=== PATIENT | male | born 1950 | race Caucasian/White ===

== ENCOUNTER → 2019-06-24 09:52 | Outpatient (BNVA) | payer MEDICARE, MEDICAID, SELFPAY | PROVIDERS: Family Provider Nurse Practitioner; Visit Provider Psychiatry & Neurology Psychiatry | DX: F33.1 Major depressive disorder, recurrent, moderate (principal); F40.00 Agoraphobia, unspecified | CPT/HCPCS: 99213 ==

== ENCOUNTER 2019-12-14 12:37 | Emergency (ER) | payer MEDICARE, MEDICAID, SELFPAY ==
[2019-12-14 12:49] VITALS: BP 151/90; PULSE 99; RESP 20; TEMP 35.9; O2SAT 92; BMI 36.5
[2019-12-14 12:53] VITALS: RESP 18
--- NOTE | 2019-12-14 13:22 | W.ED.DENTAL ---
HPI - Dental/Oral General: Chief complaint: Dental/Oral Stated complaint: dental pain Time Seen by Provider: 12/14/19 12:48 History of Present Illness: HPI Narrative: This patient is a 69-year-old male presenting today with what he thinks is a dental abscess. He is having pain in the left upper rear molar. He said he has had issues like this before and feels like he needs some antibiotic while waiting for his dentist appointment that is on Monday. He has not felt like he had a fever. He denies any other complaints. He does have a history of high blood pressure for which he takes losartan. He has been very careful in terms of any exposure to COVID. Associated symptoms: Denies fever(s) or odynophagia Review of Systems General: Reports: 10 or more systems reviewed and unremarkable except in HPI and below Const: Denies: fever(s), chills, fatigue or malaise Eyes: Denies: change in vision ENMT: Reports: dental pain; Denies: odynophagia Card: Denies: chest pain or swelling of feet/ankles Resp: Denies: dyspnea, productive cough or non-productive cough GI: Denies: abdominal pain, nausea or vomiting : Denies: flank pain Musc: Denies: neck pain or back pain Skin/Breast: Denies: rash Neuro: Denies: headache(s), numbness in extremities or weakness in extremities Travis/Lymph: Denies: easy bruising or easy bleeding PFS ED PFSH: Medical History Anxiety Diverticulitis GERD (gastroesophageal reflux disease) Hypertension IBS (irritable bowel syndrome) Surgical History History of hemorrhoidectomy Family History Sister Cancer Mother Lung disease Social History Smoking and tobacco status: former smoker Quit status (tobacco): has quit using tobacco Year quit tobacco: 2004 Second hand smoke exposure: No Smoking risk assessment/counseling performed?: Yes Tobacco counseling given: counseling >3 minutes Alcohol intake: never History of recent travel: No Physical Exam Const: COMMON NORMALS: no acute distress, patient oriented x3, no limitations and alert GENERAL APPEARANCE: cooperative and comfortable HENMT: HEAD & SCALP: normal to inspection FACE & SINUS: normal facial exam TEETH & GINGIVA IMAGES: 1. Deep [place], mild erythema around the gum area Eye: GENERAL EYE: appearance normal, both eyes and all related structures Neck/C-Spine: COMMON NORMALS: supple, no meningeal signs and no JVD Chest: COMMONS NORMALS: normal inspection of the chest Resp: COMMON NORMALS: normal respiratory effort, No use of accessory muscles and clear to auscultation bilaterally AUSCULTATION: clear to auscultation bilaterally Cardio: COMMON NORMALS: no JVD, regular rate, regular rhythm and No murmurs present (Cardio) RATE: regular rate RHYTHM: regular rhythm GI: COMMON NORMALS: Normal to inspection, nondistended, normoactive bowel sounds present, Soft to palpation and non-tender INSPECTION: Yes normal to inspection AUSCULTATION: Yes normoactive bowel sounds PALPATION: Yes Soft to palpation Back/Pelvis: COMMON NORMALS: thoracic and lumbar spine normal to inspection Extremity: COMMON NORMALS: normal to inspection Neuro: COMMON NORMALS: patient oriented x3, moves all extremities, no focal motor deficits and no sensory deficits noted SENSORIUM/ORIENTATION: Yes alert MENINGEAL SIGNS: Yes no meningeal signs Psych: COMMON NORMALS: mental status grossly normal, cooperative and normal affect Skin: COMMON NORMALS: no rashes or lesions noted and turgor normal GENERAL SKIN EXAM: no rashes or lesions noted and turgor normal Course Vital Signs: Vital signs: Vital Signs Temperature 96.6 F L 12/14/19 12:49 Pulse Rate 99 12/14/19 12:49 Respiratory Rate 18 12/14/19 12:53 Blood Pressure 151/90 12/14/19 12:49 Pulse Oximetry 92 12/14/19 12:49 MDM - Dental/Oral MDM Narrative: Medical decision making narrative: Mild erythema and swelling around the rearmost remaining molar in the left upper. No murmurs on exam. No rashes. Will start on penicillin per his request and per appropriate medical treatment. He has a dentist appointment on Monday. He also said his doctor was laid off due to this COVID pandemic and he is asking if I can refill his losartan and omeprazole. I did do that for him. Discharge Plan Discharge Patient Disposition: Home Condition: Stable Prescriptions: New losartan 50 mg tablet 50 mg PO DAILY Qty: 30 RF: 1 omeprazole 20 mg capsule,delayed release(DR/EC) 20 mg PO DAILY Qty: 30 RF: 1 penicillin V potassium 500 mg tablet 500 mg PO Q6H 10 Days Qty: 40 RF: 0 No Action ibuprofen 200 mg capsule 600 mg PO Q6H PRN (Reason: fever or pain) RF: 0 cholecalciferol (vitamin D3) 4,000 unit capsule 8,000 unit PO DAILY RF: 0 aspirin 81 mg tablet,delayed release (DR/EC) 81 mg PO DAILY RF: 0 diazepam 5 mg tablet 5 mg PO DAILY PRNRF: 0 polyethylene glycol 3350 [Miralax] 17 gram/dose powder 17 gm PO .EVERY OTHER DAY RF: 0 docusate sodium 50 mg capsule 50 mg PO DAILY RF: 0 Discharge Orders: Discharge Order (Routine); Ordered 12/14/19 Ordered By: Angela Ramos Discharge Diet: Usual diet Discharge Activity: Resume usual activity Patient Instructions: Dental Abscess (ED) Activity Restrictions/Additional Instructions: Return to the ED if fever, increased swelling, trouble breathing or swallowing - or any other new or concerning symptoms. Coding Level of Care Code ED Patent Paralegal for Mima Bazan
[2019-12-14] MEDS: penicillin v potassium 250 mg Tablet 500 MG PO (13:27)
[2019-12-14 13:30] VITALS: BP 120/75; PULSE 95; RESP 18; O2SAT 95
== END 2019-12-14 13:31 | disposition home or self-care (01) ==
PROVIDERS: Emergency Provider Emergency Medicine
DX: K08.89 Other specified disorders of teeth and supporting structures (principal); Z79.82 Long term (current) use of aspirin; I10 Essential (primary) hypertension; Z87.891 Personal history of nicotine dependence
CPT/HCPCS: 12345; 99281; 99282

== ENCOUNTER 2020-05-20 07:04 | Outpatient (CLI) | payer MEDICARE, MEDICAID, SELFPAY ==
--- NOTE | 2020-05-20 07:09 | USCV_ITS ---
El Puente Age: 70 Gender: M : 1950 Exam Date: 05/20/2020 07:27 Ordering Phys: Kris Howe MD Technologist: [employer] Exam Location: [facility] – [place] Indication: DYSPNEA ON EXERTION BP: 140 / 80 HR: 75 Rhythm: Sinus Technical Quality: Poor MEASUREMENTS (Male / Female) Normal Values 2D ECHO LV Diastolic Diameter PLAX 4.5 cm 4.2 - 5.9 / 3.9 - 5.3 cm LV Systolic Diameter PLAX 2.9 cm IVS Diastolic Thickness 0.9 cm 0.6 - 1.0 / 0.6 - 0.9 cm IVS Systolic Thickness 1.3 cm LVPW Diastolic Thickness 1.0 cm 0.6 - 1.0 / 0.6 - 0.9 cm LVPW Systolic Thickness 1.5 cm LVOT Diameter 2.0 cm LV Ejection Fraction 2D Teich 63.6 % LV Ejection Fraction MOD 2C 70.7 % LV Ejection Fraction 2C AL 70.5 % LA Diameter 4.8 cm LA Width 5.4 cm LA Height 5.1 cm RA Width 3.9 cm RA Height 4.4 cm M-MODE LV Diastolic Diameter MM 5.8 cm 4.2 - 5.9 / 3.9 - 5.3 cm LV Systolic Diameter MM 4.1 cm LV Ejection Fraction MM Teich 55.1 % IVS Diastolic Thickness MM 1.1 cm 0.6 - 1.0 / 0.6 - 0.9 cm IVS Systolic Thickness MM 1.7 cm LVPW Diastolic Thickness MM 1.3 cm 0.6 - 1.0 / 0.6 - 0.9 cm LVPW Systolic Thickness MM 2.0 cm RV Diastolic Diameter MM 2.3 cm Aortic Annulus Diameter 4.2 cm LA Ao Ratio MM 1.3 MV E Point Septal Separation 1.1 cm DOPPLER AV Peak Velocity 121.0 cm/s LVOT Peak Velocity 96.0 cm/s AV Area Cont Eq vti 3.0 cm squared AV Area Cont Eq pk 2.6 cm squared MV Area PHT 3.9 cm squared Mitral E to A Ratio 0.6 MV E' Velocity 24.5 cm/s Mitral E to MV E' Ratio 4.9 Mitral E to LV E' Lateral Ratio 7.0 Mitral E to LV E' Septal Ratio 3.8 TR Peak Velocity 191.2 cm/s TR Peak Gradient 14.6 mmHg TR Mean Velocity 152.7 cm/s TR Mean Gradient 10.7 mmHg TR Velocity Time Integral 74.5 cm TV Peak E Velocity 89.0 cm/s Right Atrial Pressure 3.0 mmHg Pulmonary Artery Systolic Pressu 17.6 mmHg PV Peak Velocity 72.0 cm/s FINDINGS Left Ventricle Normal left ventricular cavity size. Normal left ventricular systolic function. Left ventricular ejection fraction is estimated at 65%. Although no diagnostic regional wall motion abnormality could be identified, this possibility cannot be completely excluded based on this study. Grade I diastolic dysfunction (abnormal relaxation filling pattern), normal to mildly elevated filling pressures. Right Ventricle Normal right ventricular size and systolic function. Right ventricular systolic pressure 17.6 mmHg. Right Atrium Normal right atrial size. Left Atrium Upper normal left atrial size. Mitral Valve Thickened mitral valve. No mitral valve stenosis. Trace mitral valve regurgitation. Aortic Valve No aortic valve stenosis. No aortic valve regurgitation. Tricuspid Valve Structurally normal tricuspid valve. Trace tricuspid valve regurgitation. Pulmonic Valve Pulmonic valve not well visualized. Pericardium No pericardial effusion. Aorta Normal size aortic root and proximal ascending aorta. CONCLUSIONS 1. Normal left ventricular cavity size and systolic function. Left ventricular ejection fraction is estimated at 65%. Although no diagnostic regional wall motion abnormality could be identified, this possibility cannot be completely excluded based on this study. Grade I diastolic dysfunction (abnormal relaxation filling pattern), normal to mildly elevated filling pressures. 2. Normal right ventricular size and systolic function. 3. Normal pulmonary artery pressure. 4. No significant valvular abnormalty. 5. No prior similar studies to compare. Sun Goodman MD (Electronically Signed) Final Date: 24 May 2020 21:33 S
== END 2020-05-20 07:05 | disposition home or self-care (01) ==
PROVIDERS: PCP Family Medicine; Visit Provider Family Medicine
DX: R06.00 Dyspnea, unspecified (principal)
CPT/HCPCS: 93306

== ENCOUNTER → 2020-12-09 08:11 | Outpatient (BNVA) | payer MEDICARE, MEDICAID, SELFPAY | PROVIDERS: PCP Family Medicine; Referring Provider Family Medicine; Visit Provider Urology | DX: R97.20 Elevated prostate specific antigen [PSA] (principal); N40.0 Benign prostatic hyperplasia without lower urinary tract symptoms | CPT/HCPCS: 84153 ==

== ENCOUNTER 2021-02-08 09:21 | Outpatient (CLI) | payer MEDICARE, MEDICAID, SELFPAY | END 2021-02-08 09:22 | disposition home or self-care (01) | LOC: LAB 09:31 | PROVIDERS: PCP Family Medicine; Visit Provider Urology | DX: R97.20 Elevated prostate specific antigen [PSA] (principal) | CPT/HCPCS: 84153 ==

== ENCOUNTER → 2021-02-10 12:58 | Outpatient (BNVA) | payer MEDICARE, MEDICAID, SELFPAY | PROVIDERS: PCP Family Medicine; Visit Provider Urology | DX: N40.0 Benign prostatic hyperplasia without lower urinary tract symptoms (principal); R97.20 Elevated prostate specific antigen [PSA]; F41.9 Anxiety disorder, unspecified; N39.9 Disorder of urinary system, unspecified | CPT/HCPCS: 81003 ==

== ENCOUNTER → 2021-02-26 12:14 | Outpatient (BNVA) | payer MEDICARE, MEDICAID, SELFPAY | PROVIDERS: PCP Family Medicine; Visit Provider Urology | DX: R97.20 Elevated prostate specific antigen [PSA] (principal) | CPT/HCPCS: 88305 ==

== ENCOUNTER 2021-03-30 08:02 | Outpatient (CLI) | payer MEDICARE, MEDICAID, SELFPAY ==
--- NOTE | 2021-03-30 08:09 | NM_ITS ---
WS: [id number] NUCLEAR MEDICINE BONE SCAN Radiopharmaceutical: 27.3 Tc-99m MDP mCi IV Injection site: Antecubital Postinjection imaging delay: 1 hr CLINICAL INFORMATION: ELEVATED PSA COMPARISON: None. FINDINGS: Bone lesions: Metastatic bony uptake involving the right hemisacrum and left acetabulum extending int o the left inferior pubic ramus. Additional faint focus of uptake involving the left posterior ilium. Tiny punctate focus of uptake involving the right scapula along the inferior margin. Intense bony up take involving the lower thoracic vertebral body at approximately T10. This can be further evaluated with MRI to assess for pathologic compression fracture. A few additional nonspecific faint foci of up take involving the left posterior ribs. Soft tissue contours: Normal. Kidneys: Normal. Other findings: Degenerative uptake involving both AC joints, sternoclavicular joints, and both knees . NM/NM bone scan whole body* [id number] IMPRESSION: 1. Metastatic disease involving the right dorsal hemisacrum and left acetabulu m extending into the pubic ramus. 2. Intense focus of uptake involving the approximate T10 vertebral body suspic ious for metastatic disease/pathologic fracture. This can be further evaluated with MRI. 3. Additional punctate focus of uptake involving the right inferior scapula martinez spicious for metastatic disease. 4. Multiple nonspecific foci of uptake involving the right posterior ribs.
--- NOTE | 2021-03-30 10:51 | CT_ITS ---
WS: [id number] CT ABDOMEN PELVIS TECHNIQUE: Noncontrast CT of the abdomen and contrast-enhanced CT of the abdomen and pelvis with nathalia nal and sagittal reformatted images. CLINICAL INFORMATION: PROSTATE CANCER COMPARISON: Bone scan March 30, 2021, CT March 2021 and April 2019 DLP: 5159.[address] scans at [facility] use at least one of these dose optimization techniques: automated e xposure control; mA and/or kV adjustment per patient size (includes targeted exams where dose is matc hed to clinical indication); or iterative reconstruction. FINDINGS: Multiple hepatic cysts. Diffuse fatty infiltration of the liver. Normal portal vein and spl enic vein. Normal pancreas. Normal spleen. Small esophageal hiatal hernia. Lung bases are well aerate d. Adrenal glands are normal. Normal renal parenchymal enhancement. Normal renal excretion. Bilateral renal cortical atrophy. No hydronephrosis in either kidney. Prominent bilateral extrarenal pelvis. B ilateral mid ureterectasis likely due to bladder outlet obstruction. Enlarged prostate with heterogeneous nodule enhancement measuring 5.2 x 4.8 cm. Normal perirectal and periprostatic fat. Mild thickening of the seminal vesicles bilaterally. No pelvic lymphadenopathy. N o inguinal lymphadenopathy. Sigmoid diverticulosis. No evidence of acute diverticulitis. Normal appen richard in the right lower quadrant. No abdominal lymphadenopathy. Aortic calcification. Bony metastatic lesions with concurrent bone scan uptake seen in the right dorsal hemisacrum, left ac etabulum, and left inferior pubic ramus. Blastic lesion involving the T10 vertebral body with chronic anterior wedging corresponds to the intense focus of uptake on the bone scan. Additional lytic lesions involving the left T11 vertebral body and L1 vertebral body. Largest lesion at T11 measures 2.1 x 1.5 cm involving the left lateral vertebral body extending to the pedicle junct ion. Associated thinning of the cortex. Tiny lesion at L1 measuring 8 mm. No concurrent uptake on the bone scan. Advanced degenerative disc space narrowing L3-4 with endplate sclerotic changes and subchondral cysti c change. Vacuum disc phenomenon. Stable aneurysmal abdominal aorta measuring 2.9 x 2.8 cm 2 or 3 small blastic lesions involving the right iliac crest and right ilium adjacent to the sacroili ac joint. CT/CT abdomen pelvis wo/w [id number] IMPRESSION: 1. Enlarged heterogeneously enhancing nodular prostate with evidence of bladde r outlet obstruction. 2. No hydronephrosis in either kidney. Dilatation of the mid ureters bilateral ly likely due to bladder outlet obstruction. 3. Multiple bony metastatic lesions as described above. The blastic lesions al so seen on the concurrent bone scan at T10, left acetabulum and pubic ramus, an d right hemisacrum. Additional small blastic foci in the right ilium and iliac crests. 4. Prominent lytic focus in the left T11 vertebral body with cortical erosion. Additional small lytic lesion L1 vertebral body. No significant uptake on the bone scan. 5. Mild thickening of the seminal vesicles bilaterally. No pelvic or inguinal lymphadenopathy. 6. Multiple hepatic cysts are stable.
[2021-03-30 11:55] LABS: Blood Urea Nitrogen 9 mg/dL (8-23)
== END 2021-03-30 08:03 | disposition home or self-care (01) ==
LOC: RAD 08:05
PROVIDERS: PCP Family Medicine; Visit Provider Urology
DX: C61 Malignant neoplasm of prostate (principal); R97.20 Elevated prostate specific antigen [PSA]; N40.0 Benign prostatic hyperplasia without lower urinary tract symptoms; K76.89 Other specified diseases of liver
CPT/HCPCS: 74178; 78306; 82565; 84520; A9561; Q9967

== ENCOUNTER 2021-04-15 08:00 | Outpatient (CLI) | payer MEDICARE, MEDICAID, SELFPAY ==
[2021-04-15 10:28] LABS: Basophils # 0.1 10^3/uL (0.0-0.1); Basophils % 1.4 %; Eosinophils # 0.1 10^3/uL (0.0-0.8); Eosinophils % 1.5 %; Hemoglobin 12.9 g/dL (11.7-16.6); Lymphocytes # 1.5 10^3/uL (0.8-4.8); Lymphocytes % 19.1 %; Mean Corpuscular HGB Conc 33.1 g/dL (30.0-36.0); Mean Corpuscular Hemoglobin 31.7 pg (28.0-34.0); Mean Corpuscular Volume 95.8 fl (80-94); Mean Platelet Volume 12.1 fL (7.4-10.4); Monocytes # 0.5 10^3/uL (0.2-0.9); Monocytes % 6.6 %; Neutrophils # 5.58 10^3/uL (1.8-7.7); Neutrophils % 70.8 %; Nucleated Red Blood Cells % 0 %; Platelet Count 266 10^3/cmm (130-400); Red Blood Count 4.07 10^6/uL (4.1-5.3); Red Cell Distribution Width 16.6 % (12.1-15.1); White Blood Count 7.9 10^3/uL (4.0-10.0)
[2021-04-15 11:10] LABS: Alanine Aminotransferase 18 U/L (0-41); Albumin Level 4.6 g/dL (3.5-5.2); Alkaline Phosphatase 90 IU/L (40-130); Anion Gap 15.1 (5-19); Aspartate Amino Transferase 28 U/L (0-40); Blood Urea Nitrogen 8 mg/dL (8-23); Calcium 8.6 mg/dL (8.5-10.5); Carbon Dioxide 23 mmol/L (22-29); Chloride 101 mmol/L (98-107); Globulin 2.8 g/dL (1.3-4.6); Glucose 99 mg/dL (65-115); Osmolality Calculated 278 mOsm/kg (285-295); Potassium 4.1 mmol/L (3.5-5.1); Sodium 135 mmol/L (136-145); Total Bilirubin 0.6 mg/dL (0.15-1.2); Total Protein 7.4 g/dL (6.6-8.7)
[2021-04-15 11:51] LABS: Testosterone Total 361.6 ng/dL (193-740)
--- NOTE | 2021-04-16 10:32 | ONC CON_ITS ---
Dr. Abbott New Patient Note Patient: El Puente Unit #: [id number]: 1950 Dicatated By: Imtiaz Abbott M.D.Date of Visit: Apr 15, 2021 Onc MED New Patient/Consult Referring Physician: Dr. Jorge Luis Choudhary M.D. History of Present Illness: Mr. El Puente, is a 71-year-old gentleman, presented with metastatic prostate cancer, as per patient in October 2020, his routine lab work-up showed elevated PSA around 60 and repeat PSA on February 08, 2021 was 125, patient was referred to Dr. Choudhary, for evaluation and on February 26, 2021 he underwent TRUS P/biopsy and pathology report showed right Alex score 3+3 in 2 cores and 5 cores on the left showed [place] score 4+3, involvement 55 to 75%, 1 core on the left lateral mid, showed Alex score 4+4, 90% involvement, high-grade. On March 30, [address] scan of abdomen pelvis which showed enlarged heterogeneous enhancing nodular prostate with evidence of bladder outlet obstruction. No hydronephrosis in either kidney. But dilation of mid ureters bilaterally likely due to bladder outlet obstruction. Multiple bony metastatic lesions involving T10, left acetabulum, pubic ramus, and right hemisacrum and additional blastic foci in the right ilium and iliac crest. Prominent lytic focus in the left T11 vertebral body with cortical erosion. No pelvic or inguinal lymphadenopathy. Multiple hepatic cysts are stable. Bone scan done on March 30, 2021 shows metastatic disease involving right dorsal hemisacrum, left acetabulum extending into the pubic ramus. Intense focus of uptake involving approximately 10 vertebral body. Additional punctate focus of uptake involving right inferior scapula. Multiple nonspecific foci of uptake involving right posterior ribs. Patient denies any dysuria or hematuria, denies any fever chills, denies any nausea or vomiting denies any diarrhea constipation but has mid back pain and also in the lower back taking Aleve with some help. Denies any lower extremity weakness or numbness, denies any urine or stool incontinence. Denies any weight loss Patient has history of sleep apnea, on CPAP machine Past Medical History: Mr. Bell medical history consists of anxiety, diverticulitis, gastroesophageal reflux disease, hypertension, and irritable bowel syndrome. Past Surgical History: Mr. Leonards surgical/procedural history consists of hemorrhoidectomy. Medications: Cholecalciferol 1 Capsule (of 8000 International Unit(s)) Oral daily, diazePAM 1 Tablet (of 5 mg) Oral b.i.d., Losartan Potassium 1 Tablet (of 50 mg) Oral daily, Naprosyn 1 Tablet (of 500 mg) Oral b.i.d., Omeprazole 1 Tablet (of 20 mg) Tablet, enteric coated Oral daily, Prostate Therapy Complex 1 Tablet Capsule Oral daily Allergies: buPROPion HCl and EPINEPHrine. Social History: Mr. Puente is single. Mr. Puente no longer smokes. He drinks occasionally. Family History: Mr. Puente's mother at age 84: congestive heart failure, and lung disease. Mr. Puente's father at age 84: colon cancer. Review Of Symptoms: Review of Systems is not available for this patient. Vital Signs: Performed on Apr 15, 2021 10:10: 0, 5, 36.07 (HIGH), 2.56 sq.m, 75 in, 97 %, 90 /min, 18 /min, 154/81 mm(hg) (HIGH), 98.6 F, and 288.6 lbs (HIGH). Performance Status: 0 - Fully active, able to carry on all predisease activities without restrictions. (ECOG) Physical Examination: ENMT - No mouth sores, no thrush, no jaundice, Respiratory - Lungs are clear to auscultation, Cardiovascular - Regular rate and rhythm of heart, Abdomen - Soft, bowel sounds present, Extremities - No visible edema. Lab/Imaging: Most recent lab results are not available for this patient. Impression: Metastatic prostate cancer with extensive bone involvement as per CT scan of abdomen pelvis and bone scan done on March 30, 2021 Patient underwent TUR SP/biopsy on February 26, 2021 for progressive PSA which was more than 100 and final pathology report showed high-grade, Alex score 4+4 in 1 core on left lateral mid with 90% involvement and 4+3, and 5 cords on left with [place] score 4+3 and involvement 55 to 75% and 2 cores on right side with [place] score 3+3. Mid back pain probably due to T10 involvement and low back pain probably due to pelvic bone involvement Sleep apnea, on CPAP Plan: Discussed with patient regarding his disease status and treatment options, patient is recently diagnosed with metastatic prostate cancer, high-grade, based on CT scan of abdomen pelvis and bone scan patient has low to high volume metastatic disease e.g. only axial and pelvic bone involvement questionable rib involvement. Treatment option in his case would be combined androgen blockade plus androgen signaling inhibitor like abiraterone/prednisone or epidermoid or enzalutamide or docetaxel can be considered. At this point we will consider MRI scan of thoracic spine with attention to T10 and if there is epidural disease, may consider radiation therapy in the meantime we will start him on Percocet 5/325 1 to 2 tablet 4 to 6-hour and then patient return to clinic after MRI scan for further discussion and at that time we will consider adding extended release morphine if needed. And also discussed the role of PSMA scan, being more sensitive, may give us actual extent of disease e.g. low-volume versus high-volume., If high-volume is confirmed then ADT plus docetaxel may be preferred. Also discussed about role of clinical trial in de maria c metastatic prostate cancer, patient is interested in exploring clinical trial so we will refer him to genitourinary oncology clinic at [place] for evaluation for clinical trial regarding metastatic prostate cancer. In the meantime will obtain CBC, CMP and PSA and testosterone level and patient will return to clinic after MRI scan of the spine, patient decided to pursue treatment here, will consider starting him on Casodex 50 mg p.o. daily and after 2 weeks of initiation, will add Zoladex 10.8 mg every 3 months and low-dose abiraterone/prednisone Also discussed about role of biphosphonate in the skeleton metastatic disease, as literature has shown they do reduce skeletal related complication. All the side effect possible benefits associated with Zometa or Xgeva were discussed briefly. Signed By: Imtiaz Abbott M.D. <<Signature on File>>
== END 2021-04-15 08:01 | disposition home or self-care (01) ==
LOC: ONCMED 08:06
PROVIDERS: PCP Family Medicine; Visit Provider Internal Medicine Hematology & Oncology
DX: C61 Malignant neoplasm of prostate (principal); C79.51 Secondary malignant neoplasm of bone; R97.20 Elevated prostate specific antigen [PSA]; M54.6 Pain in thoracic spine; G89.3 Neoplasm related pain (acute) (chronic); G47.30 Sleep apnea, unspecified; Z79.899 Other long term (current) drug therapy
CPT/HCPCS: 36415; 80053; 84153; 84403; 85025; 99205

== ENCOUNTER 2021-04-27 14:58 | Outpatient (CLI) | payer MEDICARE, MEDICAID, SELFPAY ==
--- NOTE | 2021-04-27 15:07 | MR_ITS ---
WS: [id number] MRI THORACIC SPINE without contrast. HISTORY: METASTATIC PROSTATE CANCER COMPARISON: Bone scan imaging 03/30/2021. TECHNIQUE: Multiplanar sequences are performed in sagittal and axial planes. Only noncontrast imaging was performed. Unable to achieve IV access for postcontrast imaging. Mild curvature thoracic spine. Disc spaces are narrowed throughout. On the T1 sequences there is sign ificant low signal within the T10 and T11 vertebral bodies. On the STIR and T2 sequences there is inc reased signal in a large portion of the T10 and T10-11 vertebral bodies. Small amount of increased si gnal extends into the LEFT T11 pedicle. There is additional smaller foci of abnormal signal within the T12 and L1 vertebral bodies suspicious for additional metastatic sites. There is a benign hemangioma within T5. T1-2: LEFT nerve root sleeve diverticulum. T2-3: Normal. T3-4: Small RIGHT paracentral disc protrusion. T4-5: LEFT nerve root sleeve diverticulum. T5-6: Normal. T6-7: Normal. T7-8: Mild facet disease. No stenosis. T8-9: Mild bilateral facet joint arthritis. T9-10: Moderate bilateral facet joint arthritis. Mild foraminal narrowing. T10-11: Marked facet joint arthritis and ligamentum flavum hypertrophy. Mild foraminal narrowing. T11-12: Normal. Subcutaneous T2 intense nodule just to the RIGHT of midline at the T5 level is probably a sebaceous c yst. MR/MR thoracic spin wo con* [id number] IMPRESSION: 1. Abnormal signal in a large portion of the T10 and T11 vertebral bodies high ly suspicious for metastatic disease. IV contrast will be necessary to confirm metastatic disease. Unable to achieve IV access during this evaluation. 2. Additional smaller foci of abnormal signal in T12 and L1 suspicious for met astatic disease also.
== END 2021-04-27 14:59 | disposition home or self-care (01) ==
PROVIDERS: PCP Family Medicine; Visit Provider Internal Medicine Hematology & Oncology
DX: C61 Malignant neoplasm of prostate (principal)
CPT/HCPCS: 72146

== ENCOUNTER → 2021-04-30 09:40 | Outpatient (BNVA) | payer MEDICARE, MEDICAID, SELFPAY | PROVIDERS: PCP Family Medicine; Visit Provider Family Medicine Adult Medicine | DX: Z20.828 Contact with and (suspected) exposure to other viral communicable diseases (principal); Z20.822 Contact with and (suspected) exposure to COVID-19 | CPT/HCPCS: 87635 ==

== ENCOUNTER 2021-05-05 08:48 | Outpatient (CLI) | payer MEDICARE, MEDICAID, SELFPAY ==
--- NOTE | 2021-05-05 08:52 | MR_ITS ---
WS: [id number] MRI THORACIC SPINE with contrast HISTORY: METASTATIC PROSTATE Cancer; specific ATTN. TO T10-T11 COMPARISON: Noncontrast MRI 04/27/2021. TECHNIQUE: Multiplanar sequences are performed in sagittal and axial planes. Study today performed with contrast to read in conjunction with the study of 04/27/2021. Precontrast T1 sequences are also submitted along with the postcontrast imaging. Mild heterogeneous enhancement within the T10 and T11 vertebral bodies. This corresponds to the areas of decreased signal seen on the T1 sequences and highly suspicious for metastatic disease in compari son to the bone scan findings. There is very slight loss of height of the T11 vertebral body. The T11 vertebral body was not positive on the recent bone scan. This enhancement within T11 may be related to hyperemia from minimal compression deformity which is new since 03/30/2021. There is soft tissue e nhancement along the LEFT lateral T11 vertebral body. No cord compression. Abnormal signal in T5 and T7 does not enhance. Very slight enhancement within the T12 vertebral body may be delivered basilar v ertebral artery. No enhancement within L1. Fibrosis noted in the posterior upper RIGHT lung. IMPRESSION: 1. Heterogeneous enhancement within T10 and T11 vertebral bodies as described above. Highly suspicio us for metastatic disease. There is very slight loss of height within T11. Cannot completely exclude acute compression fracture causing the mild hyperemia and enhancement. 2. Cannot confirm metastatic disease within additional vertebral bodies.
[2021-05-05 10:38] LABS: Basophils # 0.1 10^3/uL (0.0-0.1); Basophils % 1.5 %; Eosinophils # 0.1 10^3/uL (0.0-0.8); Eosinophils % 1.3 %; Hematocrit 37.4 % (42.0-52.0); Hemoglobin 12.3 g/dL (11.7-16.6); Lymphocytes % 18.5 %; Mean Corpuscular HGB Conc 32.9 g/dL (30.0-36.0); Mean Corpuscular Hemoglobin 30.9 pg (28.0-34.0); Mean Platelet Volume 12.2 fL (7.4-10.4); Monocytes # 0.5 10^3/uL (0.2-0.9); Monocytes % 8.8 %; Neutrophils # 3.69 10^3/uL (1.8-7.7); Nucleated Red Blood Cells % 0 %; Platelet Count 220 10^3/cmm (130-400); Red Blood Count 3.98 10^6/uL (4.1-5.3); Red Cell Distribution Width 16.8 % (12.1-15.1); White Blood Count 5.4 10^3/uL (4.0-10.0)
[2021-05-05] MEDS: gadobenate dimeglumine 20 mL vial IV (10:59)
[2021-05-05 11:05] LABS: Alanine Aminotransferase 8 U/L (0-41); Albumin Level 4.2 g/dL (3.5-5.2); Alkaline Phosphatase 109 IU/L (40-130); Anion Gap 18.2 (5-19); Aspartate Amino Transferase 13 U/L (0-40); Blood Urea Nitrogen 7 mg/dL (8-23); Calcium 8.3 mg/dL (8.5-10.5); Carbon Dioxide 25 mmol/L (22-29); Chloride 99 mmol/L (98-107); Globulin 2.8 g/dL (1.3-4.6); Glucose 106 mg/dL (65-115); Osmolality Calculated 284 mOsm/kg (285-295); Potassium 4.2 mmol/L (3.5-5.1); Sodium 138 mmol/L (136-145); Total Bilirubin 0.8 mg/dL (0.15-1.2)
== END 2021-05-05 08:49 | disposition home or self-care (01) ==
LOC: RADSHAW 08:51 → ONCMED 11:07
PROVIDERS: PCP Family Medicine; Visit Provider Internal Medicine Hematology & Oncology
DX: C61 Malignant neoplasm of prostate (principal); C79.51 Secondary malignant neoplasm of bone; R68.89 Other general symptoms and signs
CPT/HCPCS: 36415; 72147; 80053; 84153; 85025; A9577

== ENCOUNTER 2021-05-12 09:16 | Outpatient (RCR) | payer MEDICARE, MEDICAID, SELFPAY ==
--- NOTE | 2021-05-12 14:42 | N.ONRAD NP_ITS ---
Radiation Oncology New Patient Visit Patient: El Puente MR#: [id number] : 1950> Age: 71> Sex: Male> Account #: Dictated by: Dr. Momo Aviles Date of Service: 05/12/2021 Referring Physician(s) : Imtiaz Abbott Diagnosis: C61 - malignant neoplasm of prostate, Diagnosed 04/16/2021 (active). Prostate, adenocarcinoma, metastatic to bone Radiotherapy to date: Summary > No prior radiation therapy. Chief Complaint / History of Present Illness: Mr. Puente is a 71-year-old man who presented without complaints in mid October 2020. Routine blood work was obtained and revealed a PSA of 67.5. A repeat value was 106. He did not immediately seek further attention. A repeat PSA 02/08/2021 was 125. He was referred to Dr. Choudhary. On 02/26/2021 prostate biopsies were performed. The patient had 1 core of [place] 4+4 equal 8 prostate adenocarcinoma in the left mid gland. 5 other cores from the left prostate showed Alex 4+3 equal 7 prostate cancer and 2 cores from the right prostate showed Alex 3+3 equal 6 adenocarcinoma. A bone scan was obtained 03/30/2021. Metastatic disease was noted in the right hemisacrum, left acetabulum extending into the left inferior pubic ramus, T10, and the inferior right scapula. Also on March [address] of the abdomen pelvis. The prostate was noted to be enlarged and nodular. There was mild thickening of the seminal vesicles. Ureters were dilated bilaterally but no hydronephrosis was detected. The lesions noted on bone scan were seen and also a lytic focus in T11 was seen that did not show up on bone scan. A repeat PSA on 04-[address] Abbott ordered a MRI of the thoracic spine because of the lesions at T10 and T11. There was concern of extraosseous extension at T11 though no epidural tumor was specifically described. This study was ultimately reviewed at [facility] radiology when the patient went there for consultation. They did not see any extraosseous extension and indicated the spinal cord had normal signal intensity on all sequences. I have personally reviewed the MRI and I cannot see any evidence of epidural tumor. Mr. Puente saw Dr. Latasha Hankins 05/06/2021 at [facility]. She offered him treatment on a new systemic therapy protocol, but because frequent travel to [place] would be required, he declined. She therefore recommended he receive standard systemic therapy here in [place]. At that time he was complaining of pain in the ischia. It was recommended that he be considered for ischial radiation if the pain does not respond after the initiation of systemic therapy. When Mr. Puente saw Dr. Abbott previously, he complained of mid back pain in the area of the lower thoracic spine. Due to that complaint and the doubt expressed about the presence of epidural disease, he has referred Mr. Puente for evaluation and recommendations with regard to the use of palliative radiation. Current Medications: Cholecalciferol, diazePAM, losartan Potassium, naprosyn, omeprazole, percocet, prostate Therapy Complex. Allergies: buPROPion HCl and EPINEPHrine. Medical History: Anxiety, diverticulitis, gastroesophageal reflux disease, hypertension, irritable bowel syndrome. No history of collagen vascular disease. No previous radiation therapy. Surgical History: Hemorrhoidectomy. Family History: Father is at age 84 having experienced colon cancer. Mother is at age 84 having experienced congestive heart failure, and lung disease. Sister has experienced Cancer. Social History: Last screened on 04/15/2021 - Yes - but has quit. Last screened on 04/15/2021 - Drinks occasionally. Current Complaints / Review of Systems: . Neurologic: No complaints. ENT: No complaints. Pulmonary: No complaints. Cardiac: No complaints. GI: No upper GI complaints. Mr. Puente has recently noted bloating after eating. He is experiencing constipation that has been poorly responsive to fleets enemas. He has bowel movements but they are irregularly irregular and poorly formed. He also feels they are low in volume. : No difficulty voiding. He specifically denies hesitancy, dribbling, starting and stopping, incomplete emptying, dysuria, pyuria, or hematuria. Musculoskeletal: He describes ischial discomfort with sitting that is been present a few weeks. He currently denies having any back pain in the area of the lower thoracic spine. He denies upper posterior pelvic pain in the area of the sacrum and SI joints. No pain in the right scapula. Vital Signs: Performed on 05/12/2021 10:43 AM BMI - 38.288 kg/m2 (high), Height - 73 in, Weight - 290.2 lbs, Temperature - 98.9 f, Pulse - 80 /min, Respiration - 18 /min, O2 Sat - 94 % (low), Pain - 6, Fatigue - 0 and BP - 141/ 83 mm(hg)(high/). Physical Exam: Alert, oriented, no acute distress. No cervical or supraclavicular lymphadenopathy. Lungs clear to percussion. On auscultation no rales rhonchi or wheezes. Heart rhythm regular. No murmur gallop or rub. Abdomen no distention. Bowel sounds were active and normal. No organomegaly or mass. He had mild tenderness to palpation in the periumbilical area. There was no rebound tenderness. His musculoskeletal exam did not reveal any tenderness along the course of the spine with very aggressive palpation and percussion. He had no tenderness of the hip joints. Straight leg raise was negative for pain. He had excellent strength in the lower extremities. No tenderness on palpation or percussion of the hips. Palpation of the ischia revealed mild tenderness bilaterally. Rectal examination revealed normal sphincter tone. The prostate was firm and nodular bilaterally. No rectal masses detected. Performance Status: ECOG 1 Pathology: Primary, c61 - malignant neoplasm of prostate, Diagnosed 04/16/2021 (active). Lab: See history for PSA values. Imaging: See HPI Impression: Metastatic carcinoma of the prostate. Systemic therapy is certainly indicated and Mr. Puente will be seeing Dr. Abbott this afternoon for initiation of treatment. Currently I do not feel there is an indication for radiation. I could not produce any tenderness in the lower thoracic spine. The MRI of the spine has been reviewed at [facility] and no extraosseous extension or cord abnormality was detected. I reviewed the images and agree with that assessment. has recommended that palliative radiation be considered to the ischia if the pain in that area persists after the initiation of systemic therapy. The patient's abdominal and bowel movement complaints were addressed. He saw his family physician regarding this problem on Monday of this week. The patient states that he is being referred for endoscopy. He actually received a call concerning that while he was here in the radiation center. At this time I do not feel he has an acute abdomen or a pending acute abdomen; therefore, I did not recommend he go to the emergency room. Plan: Initiate systemic therapy. No palliative radiation recommended at this time. Signed by: 05/12/2021 2:41:04 PM <<Signature on File>> Time spent with patient: 45 minutes CPT Code: CPT Code:
--- NOTE | 2021-05-12 17:16 | ONC FU_ITS ---
Dr. Abbott follow up note Patient: El Puente Unit #: [id number]: 1950 Dicatated By: Imtiaz Abbott M.D.Date of Visit:May 12, 2021 Onc Med Follow-up/Prog Note History of Present Illness: Mr. El Puente, is a 71-year-old gentleman, presented with metastatic prostate cancer, as per patient in October 2020, his routine lab work-up showed elevated PSA around 60 and repeat PSA on February 08, 2021 was 125, patient was referred to Dr. Choudhary, for evaluation and on February 26, 2021 he underwent TRUS P/biopsy and pathology report showed right [place] score 3+3 in 2 cores and 5 cores on the left showed [place] score 4+3, involvement 55 to 75%, 1 core on the left lateral mid, showed [place] score 4+4, 90% involvement, high-grade. On March 30, [address] scan of abdomen pelvis which showed enlarged heterogeneous enhancing nodular prostate with evidence of bladder outlet obstruction. No hydronephrosis in either kidney. But dilation of mid ureters bilaterally likely due to bladder outlet obstruction. Multiple bony metastatic lesions involving T10, left acetabulum, pubic ramus, and right hemisacrum and additional blastic foci in the right ilium and iliac crest. Prominent lytic focus in the left T11 vertebral body with cortical erosion. No pelvic or inguinal lymphadenopathy. Multiple hepatic cysts are stable. Bone scan done on March 30, 2021 shows metastatic disease involving right dorsal hemisacrum, left acetabulum extending into the pubic ramus. Intense focus of uptake involving approximately 10 vertebral body. Additional punctate focus of uptake involving right inferior scapula. Multiple nonspecific foci of uptake involving right posterior ribs. Patient denies any dysuria or hematuria, denies any fever chills, denies any nausea or vomiting denies any diarrhea constipation but has mid back pain and also in the lower back taking Aleve with some help. Denies any lower extremity weakness or numbness, denies any urine or stool incontinence. Denies any weight loss Patient has history of sleep apnea, on CPAP machine Came for follow-up, denies any specific complaint except persistent mid upper back pain which is under control with current pain medication. Patient went to [place] for second opinion and regarding clinical trials, as per patient there was clinical trial available but requiring him to go there twice a week which he does not want to do it, so he was recommended to start treatment here. He was also referred to radiation oncology for mid back pain and as per MRI scan of the thoracic spine done on May 05, 2021, impression was cannot completely exclude acute compression fracture causing mild hyponatremia and enhancement involving T10 and T11 vertebral bodyAs per patient, as long as his mid back pain under control, he do not have to start radiation no rather proceed with ADT and Xgeva Medications: Cholecalciferol 1 Capsule (of 8000 International Unit(s)) Oral daily, diazePAM 1 Tablet (of 5 mg) Oral b.i.d., Losartan Potassium 1 Tablet (of 50 mg) Oral daily, Naprosyn 1 Tablet (of 500 mg) Oral b.i.d., Omeprazole 1 Tablet (of 20 mg) Tablet, enteric coated Oral daily, Prostate Therapy Complex 1 Tablet Capsule Oral daily Allergies: buPROPion HCl and EPINEPHrine. Review of Systems: Review of Systems is not available for this patient. Vital Signs: Performed on May 12, 2021 10:43 Height - 73 in Weight - 290.2 lbs Temperature - 98.9 F Pulse - 80 /min Respiration - 18 /min BP - 141/83 mm(hg) (HIGH) O2 Sat - 94 % (LOW) Pain - 6 Fatigue - 0 Performed on May 12, 2021 10:43 BMI - 38.288 kg/m2 (HIGH) Performance Status: 0 - Fully active, able to carry on all predisease activities without restrictions. (ECOG) Physical Examination: ENMT - No mouth sores, no thrush, no jaundice, Respiratory - Lungs are clear to auscultation, Cardiovascular - Regular rate and rhythm of heart, Abdomen - Soft, bowel sounds present, Extremities - No visible edema. Lab/Imaging: Most recent lab results are not available for this patient. Impression: Metastatic prostate cancer with extensive bone involvement as per CT scan of abdomen pelvis and bone scan done on March 30, 2021 Patient underwent TUR SP/biopsy on February 26, 2021 for progressive PSA which was more than 100 and final pathology report showed high-grade, Alex score 4+4 in 1 core on left lateral mid with 90% involvement and 4+3, and 5 cords on left with [place] score 4+3 and involvement 55 to 75% and 2 cores on right side with Alex score 3+3. Mid back pain probably due to T10 involvement and low back pain probably due to pelvic bone involvement Sleep apnea, on CPAP Plan: Discussed with patient regarding his labs from May 05, 2021 shows white blood count 5.4 hemoglobin 12.3 hematocrit 37.4 platelets 220,000 CMP within normal limits PSA 228.2 MRI spine done on May 05, 2021 shows heterogeneous enhancement within T10 and T11 vertebral body. Highly suspicious for metastatic disease. Very slight loss of height within T11. Cannot completely exclude acute compression fracture causing mild hyperemia and enhancement. Clinically, patient is doing reasonably well, his mid back pain is under control with current pain medication with Percocet, we will give him another prescription. In the meantime he was referred to radiation oncology for evaluation for role of radiation to his mid back for metastatic disease but as per radiation oncology as long as his pain is under control with narcotics and no evidence of epidural disease, would recommend to initiate ADT, will start him on Casodex 50 mg p.o. daily today and also consider Xgeva on monthly basis and in 2 weeks we will start him on Zoladex 10.8 mg every 3 months. Along with vitamin D and calcium supplement And then patient return to clinic in 1 month with CMP, testosterone and PSA.And next generation sequencing also consider baseline DEXA scan and As per the constipation is concerned, Could be multifactorial including due to narcotics or compression from enlarged prostate,patient is seeing Dr. Giordano regarding possible colonoscopy and also considering EGD for history of esophageal stricture. Patient was advised to try milk of magnesia/prune juice mixture, Signed By: Imtiaz Abbott M.D. <<Signature on File>>
== END 2021-05-14 23:59 | disposition home or self-care (01) ==
LOC: ONCMED 09:16
PROVIDERS: PCP Family Medicine; Visit Provider Specialist
DX: C61 Malignant neoplasm of prostate (principal); C79.51 Secondary malignant neoplasm of bone; M54.6 Pain in thoracic spine; G47.30 Sleep apnea, unspecified; E55.9 Vitamin D deficiency, unspecified; K59.09 Other constipation; Z79.899 Other long term (current) drug therapy
CPT/HCPCS: 99205; 99214

== ENCOUNTER 2021-06-11 06:19 | Outpatient (RCR) | payer MEDICARE, MEDICAID, SELFPAY ==
[2021-05-27] MEDS: lidocaine 1% INJ 20 mL INJECTION (13:52)
[2021-05-27] MEDS: denosumab 120 mg SDV SUBCUT (14:00)
[2021-05-27] MEDS: goserelin acetate 10.8 mg Implant SUBCUT (14:05)
[2021-06-11 08:27] LABS: Basophils # 0.1 10^3/uL (0.0-0.1); Basophils % 1.4 %; Eosinophils # 0.2 10^3/uL (0.0-0.8); Eosinophils % 2.4 %; Hemoglobin 14.4 g/dL (11.7-16.6); Lymphocytes # 2.5 10^3/uL (0.8-4.8); Lymphocytes % 25.7 %; Mean Corpuscular Hemoglobin 29.8 pg (28.0-34.0); Mean Corpuscular Volume 93.2 fl (80-94); Mean Platelet Volume 11.7 fL (7.4-10.4); Monocytes # 0.6 10^3/uL (0.2-0.9); Monocytes % 6.5 %; Neutrophils # 6.25 10^3/uL (1.8-7.7); Neutrophils % 63.7 %; Nucleated Red Blood Cells % 0 %; Platelet Count 322 10^3/cmm (130-400); Red Blood Count 4.83 10^6/uL (4.1-5.3); Red Cell Distribution Width 17.7 % (12.1-15.1); White Blood Count 9.8 10^3/uL (4.0-10.0)
[2021-06-11 09:00] LABS: Alanine Aminotransferase 13 U/L (0-41); Albumin Level 4.8 g/dL (3.5-5.2); Alkaline Phosphatase 189 IU/L (40-130); Anion Gap 17.9 (5-19); Aspartate Amino Transferase 16 U/L (0-40); Blood Urea Nitrogen 16 mg/dL (8-23); Calcium 8.2 mg/dL (8.5-10.5); Carbon Dioxide 23 mmol/L (22-29); Chloride 100 mmol/L (98-107); Globulin 3.3 g/dL (1.3-4.6); Glucose 101 mg/dL (65-115); Osmolality Calculated 283 mOsm/kg (285-295); Potassium 4.9 mmol/L (3.5-5.1); Sodium 136 mmol/L (136-145); Testosterone Total 51.2 ng/dL (193-740); Total Bilirubin 0.5 mg/dL (0.15-1.2); Total Protein 8.1 g/dL (6.6-8.7)
--- NOTE | 2021-06-11 11:44 | ONC FU_ITS ---
Dr. Abbott follow up note Patient: El Puente Unit #: [id number]: 1950 Dicatated By: Imtiaz Abbott M.D.Date of Visit:Jun 11, 2021 Onc Med Follow-up/Prog Note History of Present Illness: Mr. El Puente, is a 71-year-old gentleman, presented with metastatic prostate cancer, as per patient in October 2020, his routine lab work-up showed elevated PSA around 60 and repeat PSA on February 08, 2021 was 125, patient was referred to Dr. Choudhary, for evaluation and on February 26, 2021 he underwent TRUS P/biopsy and pathology report showed right [place] score 3+3 in 2 cores and 5 cores on the left showed [place] score 4+3, involvement 55 to 75%, 1 core on the left lateral mid, showed [place] score 4+4, 90% involvement, high-grade. On March 30, [address] scan of abdomen pelvis which showed enlarged heterogeneous enhancing nodular prostate with evidence of bladder outlet obstruction. No hydronephrosis in either kidney. But dilation of mid ureters bilaterally likely due to bladder outlet obstruction. Multiple bony metastatic lesions involving T10, left acetabulum, pubic ramus, and right hemisacrum and additional blastic foci in the right ilium and iliac crest. Prominent lytic focus in the left T11 vertebral body with cortical erosion. No pelvic or inguinal lymphadenopathy. Multiple hepatic cysts are stable. Bone scan done on March 30, 2021 shows metastatic disease involving right dorsal hemisacrum, left acetabulum extending into the pubic ramus. Intense focus of uptake involving approximately 10 vertebral body. Additional punctate focus of uptake involving right inferior scapula. Multiple nonspecific foci of uptake involving right posterior ribs. Patient denies any dysuria or hematuria, denies any fever chills, denies any nausea or vomiting denies any diarrhea constipation but has mid back pain and also in the lower back taking Aleve with some help. Denies any lower extremity weakness or numbness, denies any urine or stool incontinence. Denies any weight loss Patient has history of sleep apnea, on CPAP machine Came for follow-up, denies any specific complaints, no fever chills, no nausea or vomiting, no diarrhea constipation, back pain is under control with current pain medication he takes narcotic/NSAID naproxen, now pain is 1 on the scale of 1-10. Denies any constipation or diarrhea denies any fever chills denies any dysuria or hematuria denies any hot flashes, denies any new bony pains. Tolerating Casodex/Zoladex along with monthly Xgeva well Medications: Cholecalciferol 1 Capsule (of 8000 International Unit(s)) Oral daily, diazePAM 1 Tablet (of 5 mg) Oral b.i.d., Losartan Potassium 1 Tablet (of 50 mg) Oral daily, Naprosyn 1 Tablet (of 500 mg) Oral b.i.d., Omeprazole 1 Tablet (of 20 mg) Tablet, enteric coated Oral daily, Prostate Therapy Complex 1 Tablet Capsule Oral daily Allergies: buPROPion HCl and EPINEPHrine. Review of Systems: Review of Systems is not available for this patient. Vital Signs: Performed on Jun 11, 2021 09:42 Height - 73.00 in Weight - 290.2 lbs BSA - 2.52 sq.m BMI - 38.29 (HIGH) Temperature - 97.3 F (LOW) Pulse - 81 /min Respiration - 18 /min BP - 172/91 mm(hg) (HIGH) O2 Sat - 97 % Pain - 0 Fatigue - 0 Performance Status: 0 - Fully active, able to carry on all predisease activities without restrictions. (ECOG) Physical Examination: ENMT - No mouth sores, no thrush, no jaundice, Respiratory - Lungs are clear to auscultation, Cardiovascular - Regular rate and rhythm of heart, Abdomen - Soft, bowel sounds present, Extremities - No visible edema. Lab/Imaging: Most recent lab results are not available for this patient. Impression: Metastatic prostate cancer with extensive bone involvement as per CT scan of abdomen pelvis and bone scan done on March 30, 2021 Patient underwent TUR SP/biopsy on February 26, 2021 for progressive PSA which was more than 100 and final pathology report showed high-grade, [place] score 4+4 in 1 core on left lateral mid with 90% involvement and 4+3, and 5 cords on left with Aelx score 4+3 and involvement 55 to 75% and 2 cores on right side with [place] score 3+3. Started on 3 monthly Zoladex 10.8 mg, monthly Xgeva on May 27, 2021, patient was started on Casodex 50 mg p.o. daily 2 weeks prior to Zoladex to prevent flare as patient has spine mets. Mid back pain probably due to T10 involvement and low back pain probably due to pelvic bone involvement Sleep apnea, on CPAP Plan: Discussed with patient regarding his labs white blood count 9.8 hemoglobin 14.4 hematocrit 45 platelets 322,000 CMP within normal limits, testosterone 51.2 compared to 361.6 on April 15, 2021 PSA is 22.14 compared to 226.2 on May 05, 2021 Clinically, patient is doing well, with no new signs symptom suggestive of disease progression, tolerating Casodex/Zoladex well, his follow-up lab work-up shows dramatic reduction in his PSA, now 22.1 compared to 226.2 about a month ago., Patient is tolerating Zoladex/Casodex well along with monthly Xgeva He will return to clinic in 2 weeks with a PSA and for next monthly dose of Xgeva and In the meantime,will Continue daily Casodex And as per recommendation from [place] [facility], may consider switching him to abiraterone 250 mg p.o. daily along with prednisone 5 mg twice a day while continue with 3 monthly Zoladex and monthly Xgeva, Also follow-up with next generation sequencing Signed By: Imtiaz Abbott M.D. <<Signature on File>>
== END 2021-06-14 23:59 | disposition home or self-care (01) ==
LOC: ONCMED 06:19
PROVIDERS: PCP Family Medicine; Visit Provider Internal Medicine Hematology & Oncology
DX: Z51.11 Encounter for antineoplastic chemotherapy (principal); C61 Malignant neoplasm of prostate; C79.51 Secondary malignant neoplasm of bone; M54.6 Pain in thoracic spine; G47.30 Sleep apnea, unspecified; Z79.818 Long term (current) use of other agents affecting estrogen receptors and estrogen levels
CPT/HCPCS: 36415; 80053; 84153; 84403; 85025; 96372; 96402; 99214; J0897; J9202

== ENCOUNTER 2021-06-24 06:23 | Outpatient (RCR) | payer MEDICARE, MEDICAID, SELFPAY ==
[2021-06-24] MEDS: denosumab 120 mg SDV SUBCUT (10:55)
--- NOTE | 2021-06-24 16:11 | ONC FU_ITS ---
Dr. Abbott follow up note Patient: El Puente Unit #: [id number]: 1950 Dicatated By: Imtiaz Abbott M.D.Date of Visit:Jun 24, 2021 Onc Med Follow-up/Prog Note History of Present Illness: Mr. El Puente, is a 71-year-old gentleman, presented with metastatic prostate cancer, as per patient in October 2020, his routine lab work-up showed elevated PSA around 60 and repeat PSA on February 08, 2021 was 125, patient was referred to Dr. Choudhary, for evaluation and on February 26, 2021 he underwent TRUS P/biopsy and pathology report showed right Clarence score 3+3 in 2 cores and 5 cores on the left showed Clarence score 4+3, involvement 55 to 75%, 1 core on the left lateral mid, showed Clarence score 4+4, 90% involvement, high-grade. On March 30, [address] scan of abdomen pelvis which showed enlarged heterogeneous enhancing nodular prostate with evidence of bladder outlet obstruction. No hydronephrosis in either kidney. But dilation of mid ureters bilaterally likely due to bladder outlet obstruction. Multiple bony metastatic lesions involving T10, left acetabulum, pubic ramus, and right hemisacrum and additional blastic foci in the right ilium and iliac crest. Prominent lytic focus in the left T11 vertebral body with cortical erosion. No pelvic or inguinal lymphadenopathy. Multiple hepatic cysts are stable. Bone scan done on March 30, 2021 shows metastatic disease involving right dorsal hemisacrum, left acetabulum extending into the pubic ramus. Intense focus of uptake involving approximately 10 vertebral body. Additional punctate focus of uptake involving right inferior scapula. Multiple nonspecific foci of uptake involving right posterior ribs. Patient denies any dysuria or hematuria, denies any fever chills, denies any nausea or vomiting denies any diarrhea constipation but has mid back pain and also in the lower back taking Aleve with some help. Denies any lower extremity weakness or numbness, denies any urine or stool incontinence. Denies any weight loss Patient has history of sleep apnea, on CPAP machine Came for follow-up, denies any specific complaint except mild, chronic back pain which is under control with once a day narcotic, denies any lower extremity weakness, denies any dysuria or hematuria, denies any nausea or vomiting, denies any jaundice or abdominal pain or fullness, denies any heart flashes, tolerating 3 monthly Zoladex and daily Casodex along with monthly Xgeva well Medications: Cholecalciferol 1 Capsule (of 8000 International Unit(s)) Oral daily, diazePAM 1 Tablet (of 5 mg) Oral b.i.d., Losartan Potassium 1 Tablet (of 50 mg) Oral daily, Naprosyn 1 Tablet (of 500 mg) Oral b.i.d., Omeprazole 1 Tablet (of 20 mg) Tablet, enteric coated Oral daily, Prostate Therapy Complex 1 Tablet Capsule Oral daily Allergies: buPROPion HCl and EPINEPHrine. Review of Systems: Review of Systems is not available for this patient. Vital Signs: Performed on Jun 24, 2021 10:47 Height - 73.00 in Weight - 293.4 lbs (HIGH) BSA - 2.53 sq.m BMI - 38.71 (HIGH) Temperature - 98.3 F (LOW) Pulse - 86 /min Respiration - 18 /min BP - 162/77 mm(hg) (HIGH) O2 Sat - 98 % Pain - 6 Fatigue - 0 Performance Status: 1 - No physically strenuous activity, but ambulatory and able to carry out light or sedentary work (e.g. office work, light house work). (ECOG) Physical Examination: ENMT - No mouth sores, no thrush, no jaundice, Respiratory - Lungs are clear to auscultation, Cardiovascular - Regular rate and rhythm of heart, Abdomen - Soft, bowel sounds present, Extremities - No visible edema. Lab/Imaging: Most recent lab results are not available for this patient. Impression: Metastatic prostate cancer with extensive bone involvement as per CT scan of abdomen pelvis and bone scan done on March 30, 2021 Patient underwent TUR SP/biopsy on February 26, 2021 for progressive PSA which was more than 100 and final pathology report showed high-grade, Clarence score 4+4 in 1 core on left lateral mid with 90% involvement and 4+3, and 5 cords on left with Clarence score 4+3 and involvement 55 to 75% and 2 cores on right side with Clarence score 3+3. Started on 3 monthly Zoladex 10.8 mg, monthly Xgeva on May 27, 2021, patient was started on Casodex 50 mg p.o. daily 2 weeks prior to Zoladex to prevent flare as patient has spine mets. Mid back pain probably due to T10 involvement and low back pain probably due to pelvic bone involvement Sleep apnea, on CPAP Plan: Discussed with patient regarding his PSA level which has gone down further now 6.7 compared to 22.1 on June 11, 2021 and 228.2 on May 05, 2021 Clinically, patient is doing well with no new signs symptom suggestive of disease progression, tolerating 3 monthly Zoladex along with daily Casodex and monthly Xgeva well, will proceed with his next monthly dose of Xgeva today and then return to clinic in 1 month with a PSA and CMP Discussed with patient regarding switching Casodex to abiraterone/prednisone as recommended by urology oncology at [place], as literature has shown it may prolong progression free survival, also discussed about side effect possible benefits associated with abiraterone, patient is reluctant to consider abiraterone/prednisone at this point as he is tolerating Casodex/Zoladex well and very pleased with PSA reports. So we will continue with Zoladex/Casodex while monitoring his PSA and return to clinic in 1 month with CMP and PSA and for next monthly dose of Xgeva. Signed By: Imtiaz Abbott M.D. <<Signature on File>>
== END 2021-07-12 23:59 | disposition home or self-care (01) ==
LOC: ONCMED 06:23
PROVIDERS: PCP Family Medicine; Visit Provider Internal Medicine Hematology & Oncology
DX: Z51.11 Encounter for antineoplastic chemotherapy (principal); C61 Malignant neoplasm of prostate; C79.51 Secondary malignant neoplasm of bone; M54.6 Pain in thoracic spine; G89.3 Neoplasm related pain (acute) (chronic); G47.30 Sleep apnea, unspecified; Z79.818 Long term (current) use of other agents affecting estrogen receptors and estrogen levels; Z79.899 Other long term (current) drug therapy
CPT/HCPCS: 36415; 84153; 96372; 99215; J0897

== ENCOUNTER 2021-07-22 11:35 | Outpatient (RCR) | payer MEDICARE, MEDICAID, SELFPAY ==
[2021-07-22 12:58] LABS: Alanine Aminotransferase 14 U/L (0-41); Albumin Level 4.5 g/dL (3.5-5.2); Alkaline Phosphatase 118 IU/L (40-130); Anion Gap 18.5 (5-19); Aspartate Amino Transferase 20 U/L (0-40); Blood Urea Nitrogen 14 mg/dL (8-23); Calcium 8.6 mg/dL (8.5-10.5); Carbon Dioxide 24 mmol/L (22-29); Chloride 102 mmol/L (98-107); Globulin 3.4 g/dL (1.3-4.6); Glucose 117 mg/dL (65-115); Osmolality Calculated 292 mOsm/kg (285-295); Potassium 4.5 mmol/L (3.5-5.1); Sodium 140 mmol/L (136-145); Total Bilirubin 0.7 mg/dL (0.15-1.2); Total Protein 7.9 g/dL (6.6-8.7)
[2021-07-22] MEDS: denosumab 120 mg SDV SUBCUT (13:45)
--- NOTE | 2021-07-22 15:14 | ONC FU_ITS ---
Mirlande Hall Progress Note Patient: El Puente Unit #: [id number]: 1950 Dicatated By: Mirlande Hall N.P.Date of Visit:Jul 22, 2021 Onc MED Follow-up/Prog Note Chief Complaint: Metastatic prostate cancer History of Present Illness: Mr. El Puente, is a 71-year-old gentleman, presented with metastatic prostate cancer, as per patient in October 2020, his routine lab work-up showed elevated PSA around 60 and repeat PSA on February 08, 2021 was 125, patient was referred to Dr. Choudhary, for evaluation and on February 26, 2021 he underwent TRUS P/biopsy and pathology report showed right Alex score 3+3 in 2 cores and 5 cores on the left showed Tipton score 4+3, involvement 55 to 75%, 1 core on the left lateral mid, showed Alex score 4+4, 90% involvement, high-grade. On March 30, [address] scan of abdomen pelvis which showed enlarged heterogeneous enhancing nodular prostate with evidence of bladder outlet obstruction. No hydronephrosis in either kidney. But dilation of mid ureters bilaterally likely due to bladder outlet obstruction. Multiple bony metastatic lesions involving T10, left acetabulum, pubic ramus, and right hemisacrum and additional blastic foci in the right ilium and iliac crest. Prominent lytic focus in the left T11 vertebral body with cortical erosion. No pelvic or inguinal lymphadenopathy. Multiple hepatic cysts are stable. Bone scan done on March 30, 2021 shows metastatic disease involving right dorsal hemisacrum, left acetabulum extending into the pubic ramus. Intense focus of uptake involving approximately 10 vertebral body. Additional punctate focus of uptake involving right inferior scapula. Multiple nonspecific foci of uptake involving right posterior ribs. Patient denies any dysuria or hematuria, denies any fever chills, denies any nausea or vomiting denies any diarrhea constipation but has mid back pain and also in the lower back taking Aleve with some help. Denies any lower extremity weakness or numbness, denies any urine or stool incontinence. Denies any weight loss Patient has history of sleep apnea, on CPAP machine Patient presents today for follow-up. He states he has been feeling well. His appetite is good. No fever, chills, night sweats. No mouth sores or sore throat. No shortness of breath, cough, chest pain he denies any GI problems or problems. He does have chronic low back pain that is well controlled with his pain medication. He denies headache or dizziness. Tolerating 3 monthly Zoladex and daily Casodex along with monthly Xgeva well Review Of Symptoms: See above. Past Medical History: Anxiety Diverticulitis Gastroesophageal reflux disease Hypertension Irritable bowel syndrome Past Surgical History: Hemorrhoidectomy Allergies: buPROPion HCl and EPINEPHrine. Medications: Cholecalciferol 1 Capsule (of 8000 International Unit(s)) Oral daily diazePAM 1 Tablet (of 5 mg) Oral b.i.d. Losartan Potassium 1 Tablet (of 50 mg) Oral daily Naprosyn 1 Tablet (of 500 mg) Oral b.i.d. Omeprazole 1 Tablet (of 20 mg) Tablet, enteric coated Oral daily Prostate Therapy Complex 1 Tablet Capsule Oral daily Family History: Mr. Puente's mother at age 84: congestive heart failure, and lung disease. Mr. Puente's father at age 84: colon cancer. Social History: Mr. Puente is single. Mr. Puente no longer smokes. He drinks occasionally. Physical Examination: Performed on Jul 22, 2021 13:19: Height - 73.00 in, Weight - 296.0 lbs (HIGH), BSA - 2.54 sq.m, BMI - 39.05 (HIGH), Temperature - 97.6 F (LOW), Pulse - 86 /min, Respiration - 18 /min, BP - 144/83 mm(hg) (HIGH), O2 Sat - 95 % (LOW), Pain - 4, and Fatigue - 3. Performance Status: 1 - No physically strenuous activity, but ambulatory and able to carry out light or sedentary work (e.g. office work, light house work). (ECOG) Constitutional Alert, cooperative, oriented. Mood and affect appropriate. Appears close to chronological age. Well nourished. Well developed. Head Normocephalic; no scars. Eyes Conjunctivae and sclerae are clear and without icterus. Pupils are reactive and equal. Respiratory Lungs are clear to auscultation without rhonchi or wheezing. Cardiovascular Regular rate and rhythm of heart without murmurs, gallops or rubs. Abdomen Non-tender, non-distended, no masses, ascites or hepatosplenomegaly. Good bowel sounds. No guarding or rebound tenderness. Extremities No visible deformities, no cyanosis, clubbing or edema. Pulses 3+ and equal bilaterally. Musculoskeletal No tenderness or swelling, normal range of motion without obvious weakness. Psychiatric Alert and oriented times three. Coherent speech. Verbalizes understanding of our discussions today. Laboratory: Test performed on Jul 22, 2021 11:49 Sodium 140 mmol/L Potassium 4.5 mmol/L Chloride 102 mmol/L CO2 24 mmol/L Anion Gap 18.5 BUN 14 mg/dL Creatinine 0.8 mg/dL Cr Clearance (Est) 158.5100 mL/min Glucose 117 mg/dL Osmolality - Calculated 292 mOsm/kg Calcium 8.6 mg/dL Protein, Total 7.9 g/dL Albumin 4.5 g/dL Globulin 3.4 g/dL Bilirubin, Total 0.7 mg/dL ALT (SGPT) 14 U/L AST (SGOT) 20 U/L Alkaline Phosphatase 118 IU/L PSA 4.980 ng/mL Impression: Metastatic prostate cancer with extensive bone involvement as per CT scan of abdomen pelvis and bone scan done on March 30, 2021 Patient underwent TUR SP/biopsy on February 26, 2021 for progressive PSA which was more than 100 and final pathology report showed high-grade, Alex score 4+4 in 1 core on left lateral mid with 90% involvement and 4+3, and 5 cords on left with Alex score 4+3 and involvement 55 to 75% and 2 cores on right side with Alex score 3+3. Started on 3 monthly Zoladex 10.8 mg, monthly Xgeva on May 27, 2021, patient was started on Casodex 50 mg p.o. daily 2 weeks prior to Zoladex to prevent flare as patient has spine mets. Mid back pain probably due to T10 involvement and low back pain probably due to pelvic bone involvement Sleep apnea, on CPAP Discussed with patient regarding switching Casodex to abiraterone/prednisone as recommended by urology oncology at [facility], as literature has shown it may prolong progression free survival, also discussed about side effect possible benefits associated with abiraterone, patient is reluctant to consider abiraterone/prednisone at this point as he is tolerating Casodex/Zoladex well and very pleased with PSA reports. Plan: Labs reviewed with patient. CMP within normal limits other than glucose being mildly elevated at 117. His PSA is 4.980 which is an improvement from last month when PSA was at 6.7. Patient has been tolerating Zoladex and Casodex well with a good response from PSA. He is actually present today for his Xgeva for bone protection. We will discontinue the Casodex and continue the Zoladex at this point. He will return to the clinic in 1 month to receive his Zoladex injection and Xgeva injection we will recheck labs with a CBC, CMP and a PSA at that time. Signed By: Mirlande Hall N.P. <<Signature on File>>
== END 2021-08-12 23:59 | disposition home or self-care (01) ==
LOC: ONCMED 11:35
PROVIDERS: PCP Family Medicine; Visit Provider Nurse Practitioner Family
DX: Z51.11 Encounter for antineoplastic chemotherapy (principal); C61 Malignant neoplasm of prostate; C79.51 Secondary malignant neoplasm of bone; M54.6 Pain in thoracic spine; G47.30 Sleep apnea, unspecified; Z79.818 Long term (current) use of other agents affecting estrogen receptors and estrogen levels; Z79.899 Other long term (current) drug therapy
CPT/HCPCS: 36415; 80053; 84153; 96372; 99215; J0897

== ENCOUNTER 2021-08-23 13:03 | Outpatient (RCR) | payer MEDICARE, MEDICAID, SELFPAY ==
[2021-08-23 13:54] LABS: Basophils # 0.1 10^3/uL (0.0-0.1); Basophils % 1.2 %; Eosinophils # 0.2 10^3/uL (0.0-0.8); Eosinophils % 1.8 %; Hemoglobin 12.1 g/dL (11.7-16.6); Lymphocytes # 1.7 10^3/uL (0.8-4.8); Lymphocytes % 20.8 %; Mean Corpuscular HGB Conc 32.7 g/dL (30.0-36.0); Mean Corpuscular Hemoglobin 30.6 pg (28.0-34.0); Mean Corpuscular Volume 93.7 fl (80-94); Mean Platelet Volume 11.8 fL (7.4-10.4); Monocytes # 0.5 10^3/uL (0.2-0.9); Monocytes % 5.6 %; Neutrophils # 5.77 10^3/uL (1.8-7.7); Neutrophils % 70.1 %; Nucleated Red Blood Cells % 0 %; Platelet Count 236 10^3/cmm (130-400); Red Blood Count 3.95 10^6/uL (4.1-5.3); Red Cell Distribution Width 20.2 % (12.1-15.1); White Blood Count 8.2 10^3/uL (4.0-10.0)
[2021-08-23 14:26] LABS: Alanine Aminotransferase 15 U/L (0-41); Albumin Level 4.1 g/dL (3.5-5.2); Alkaline Phosphatase 84 IU/L (40-130); Aspartate Amino Transferase 22 U/L (0-40); Blood Urea Nitrogen 16 mg/dL (8-23); Calcium 9.3 mg/dL (8.5-10.5); Carbon Dioxide 24 mmol/L (22-29); Chloride 105 mmol/L (98-107); Globulin 3.2 g/dL (1.3-4.6); Glucose 112 mg/dL (65-115); Osmolality Calculated 292 mOsm/kg (285-295); Sodium 140 mmol/L (136-145); Total Bilirubin 0.3 mg/dL (0.15-1.2); Total Protein 7.3 g/dL (6.6-8.7)
[2021-08-23 15:09] LABS: Anion Gap 15.4 (5-19); Potassium 4.4 mmol/L (3.5-5.1)
[2021-08-23] MEDS: lidocaine 1% INJ 20 mL INJECTION (15:50)
[2021-08-23] MEDS: denosumab 120 mg SDV SUBCUT (15:53)
[2021-08-23] MEDS: goserelin acetate 10.8 mg Implant SUBCUT (16:04)
--- NOTE | 2021-08-25 17:32 | ONC FU_ITS ---
Dr. Abbott follow up note Patient: El Puente Unit #: [id number]: 1950 Dicatated By: Imtiaz Abbott M.D.Date of Visit:Aug 23, 2021 Onc Med Follow-up/Prog Note History of Present Illness: Mr. El Puente, is a 71-year-old gentleman, presented with metastatic prostate cancer, as per patient in October 2020, his routine lab work-up showed elevated PSA around 60 and repeat PSA on February 08, 2021 was 125, patient was referred to Dr. Choudhary, for evaluation and on February 26, 2021 he underwent TRUS P/biopsy and pathology report showed right Benton score 3+3 in 2 cores and 5 cores on the left showed Benton score 4+3, involvement 55 to 75%, 1 core on the left lateral mid, showed Benton score 4+4, 90% involvement, high-grade. On March 30, [address] scan of abdomen pelvis which showed enlarged heterogeneous enhancing nodular prostate with evidence of bladder outlet obstruction. No hydronephrosis in either kidney. But dilation of mid ureters bilaterally likely due to bladder outlet obstruction. Multiple bony metastatic lesions involving T10, left acetabulum, pubic ramus, and right hemisacrum and additional blastic foci in the right ilium and iliac crest. Prominent lytic focus in the left T11 vertebral body with cortical erosion. No pelvic or inguinal lymphadenopathy. Multiple hepatic cysts are stable. Bone scan done on March 30, 2021 shows metastatic disease involving right dorsal hemisacrum, left acetabulum extending into the pubic ramus. Intense focus of uptake involving approximately 10 vertebral body. Additional punctate focus of uptake involving right inferior scapula. Multiple nonspecific foci of uptake involving right posterior ribs. Patient denies any dysuria or hematuria, denies any fever chills, denies any nausea or vomiting denies any diarrhea constipation but has mid back pain and also in the lower back taking Aleve with some help. Denies any lower extremity weakness or numbness, denies any urine or stool incontinence. Denies any weight loss Patient has history of sleep apnea, on CPAP machine Came for follow-up, denies any specific complaints, no fever chills, no nausea or vomiting, no diarrhea constipation, no dysuria or hematuria, no new bony pains, tolerating 3 monthly Zoladex along with monthly Xgeva well but with expected side effects e.g. occasionally hot flashes Medications: Cholecalciferol 1 Capsule (of 8000 International Unit(s)) Oral daily, diazePAM 1 Tablet (of 5 mg) Oral b.i.d., Losartan Potassium 1 Tablet (of 50 mg) Oral daily, Naprosyn 1 Tablet (of 500 mg) Oral b.i.d., Omeprazole 1 Tablet (of 20 mg) Tablet, enteric coated Oral daily, Prostate Therapy Complex 1 Tablet Capsule Oral daily Allergies: buPROPion HCl and EPINEPHrine. Review of Systems: Review of Systems is not available for this patient. Vital Signs: Performed on Aug 23, 2021 15:38 Height - 73.00 in Weight - 306.6 lbs (HIGH) BSA - 2.58 sq.m BMI - 40.45 (HIGH) Temperature - 97.3 F (LOW) Pulse - 86 /min Respiration - 18 /min BP - 159/72 mm(hg) (HIGH) O2 Sat - 95 % (LOW) Pain - 3 Fatigue - 2 Performance Status: 1 - No physically strenuous activity, but ambulatory and able to carry out light or sedentary work (e.g. office work, light house work). (ECOG) Physical Examination: ENMT - No mouth sores, no thrush, no jaundice, Respiratory - Lungs are clear to auscultation, Cardiovascular - Regular rate and rhythm of heart, Abdomen - Soft, bowel sounds present, Extremities - No visible edema. Lab/Imaging: Test performed on Jul 22, 2021 11:49 Sodium 140 mmol/L Potassium 4.5 mmol/L Chloride 102 mmol/L CO2 24 mmol/L Anion Gap 18.5 BUN 14 mg/dL Creatinine 0.8 mg/dL Cr Clearance (Est) 158.5100 mL/min Glucose 117 mg/dL Osmolality - Calculated 292 mOsm/kg Calcium 8.6 mg/dL Protein, Total 7.9 g/dL Albumin 4.5 g/dL Globulin 3.4 g/dL Bilirubin, Total 0.7 mg/dL ALT (SGPT) 14 U/L AST (SGOT) 20 U/L Alkaline Phosphatase 118 IU/L PSA 4.980 ng/mL Impression: Metastatic prostate cancer with extensive bone involvement as per CT scan of abdomen pelvis and bone scan done on March 30, 2021 Patient underwent TUR SP/biopsy on February 26, 2021 for progressive PSA which was more than 100 and final pathology report showed high-grade, Alex score 4+4 in 1 core on left lateral mid with 90% involvement and 4+3, and 5 cords on left with Benton score 4+3 and involvement 55 to 75% and 2 cores on right side with Alex score 3+3. Started on 3 monthly Zoladex 10.8 mg, monthly Xgeva on May 27, 2021, patient was started on Casodex 50 mg p.o. daily 2 weeks prior to Zoladex to prevent flare as patient has spine mets. Mid back pain probably due to T10 involvement and low back pain probably due to pelvic bone involvement Sleep apnea, on CPAP Discussed with patient regarding switching Casodex to abiraterone/prednisone as recommended by urology oncology at [facility], as literature has shown it may prolong progression free survival, also discussed about side effect possible benefits associated with abiraterone, patient is reluctant to consider abiraterone/prednisone at this point as he is tolerating Casodex/Zoladex well and very pleased with PSA reports. Plan: Discussed with patient regarding his labs white blood count 8.2 hemoglobin 12.1 hematocrit 37 platelets 236 CMP within normal limits PSA 3.95 compared to 4.98 on July 22, 2021 Clinically, patient doing well with no new signs symptom suggestive of disease progression, his follow-up labs shows PSA continue to improve while on 3 monthly Zoladex and monthly Xgeva. His Casodex was discontinued last month to minimize related side effects. We will proceed with his next 3 monthly dose of Zoladex today along with monthly Xgeva and he will return to clinic in 1 month with PSA.If there is no improvement in his PSA may consider adding abiraterone/prednisone Signed By: Imtiaz Abbott M.D. <<Signature on File>>
== END 2021-09-11 23:59 | disposition home or self-care (01) ==
LOC: ONCMED 13:03
PROVIDERS: PCP Family Medicine; Visit Provider Internal Medicine Hematology & Oncology
DX: Z51.11 Encounter for antineoplastic chemotherapy (principal); C61 Malignant neoplasm of prostate; C79.51 Secondary malignant neoplasm of bone; M54.6 Pain in thoracic spine; M54.50 Low back pain, unspecified; G47.30 Sleep apnea, unspecified; Z79.818 Long term (current) use of other agents affecting estrogen receptors and estrogen levels; Z79.52 Long term (current) use of systemic steroids; Z79.899 Other long term (current) drug therapy
CPT/HCPCS: 80053; 84153; 85025; 96372; 96402; 99215; J0897; J9202

== ENCOUNTER 2021-09-23 11:08 | Oncology outpatient (recurring) (ONCR) | payer MEDICARE, MEDICAID, SELFPAY ==
[2021-09-23] MEDS: denosumab 120 mg SDV SUBCUT (13:53)
== END 2021-10-12 23:59 | disposition home or self-care (01) ==
PROVIDERS: PCP Family Medicine; Visit Provider Internal Medicine Hematology & Oncology
DX: Z51.11 Encounter for antineoplastic chemotherapy (principal); C61 Malignant neoplasm of prostate; C79.51 Secondary malignant neoplasm of bone; F41.9 Anxiety disorder, unspecified; I10 Essential (primary) hypertension; K21.9 Gastro-esophageal reflux disease without esophagitis; G47.30 Sleep apnea, unspecified; R53.1 Weakness; R53.83 Other fatigue; Z79.818 Long term (current) use of other agents affecting estrogen receptors and estrogen levels; Z79.899 Other long term (current) drug therapy
CPT/HCPCS: 84153; 96401; 99215; 99999; J0897

== ENCOUNTER 2021-10-25 09:04 | Oncology outpatient (recurring) (ONCR) | payer MEDICARE, MEDICAID, SELFPAY ==
[2021-10-25 09:39] VITALS: BP 148/87; PULSE 78; RESP 16; TEMP 36.1; O2SAT 95
[2021-10-25] MEDS: denosumab 120 mg SDV SUBCUT (09:49)
== END 2021-11-11 23:59 | disposition home or self-care (01) ==
PROVIDERS: PCP Family Medicine; Visit Provider Internal Medicine Hematology & Oncology
DX: Z51.11 Encounter for antineoplastic chemotherapy (principal); C61 Malignant neoplasm of prostate
CPT/HCPCS: 96372; J0897

== ENCOUNTER 2021-11-26 08:08 | Outpatient (CLI) | payer MEDICARE, MEDICAID, SELFPAY ==
[2021-11-26 08:32] LABS: Basophils # 0.1 10^3/uL (0.0-0.1); Basophils % 1.4 %; Eosinophils # 0.2 10^3/uL (0.0-0.8); Eosinophils % 3.6 %; Hematocrit 37.6 % (42.0-52.0); Hemoglobin 12.4 g/dL (11.7-16.6); Lymphocytes # 1.8 10^3/uL (0.8-4.8); Lymphocytes % 28.4 %; Mean Corpuscular Hemoglobin 32.2 pg (28.0-34.0); Mean Corpuscular Volume 97.7 fl (80-94); Mean Platelet Volume 11.7 fL (7.4-10.4); Monocytes # 0.4 10^3/uL (0.2-0.9); Neutrophils # 3.72 10^3/uL (1.8-7.7); Nucleated Red Blood Cells % 0.3 %; Platelet Count 180 10^3/cmm (130-400); Red Blood Count 3.85 10^6/uL (4.1-5.3); Red Cell Distribution Width 16.8 % (12.1-15.1); White Blood Count 6.3 10^3/uL (4.0-10.0)
[2021-11-26 09:04] LABS: Alanine Aminotransferase 15 U/L (0-41); Albumin Level 4.2 g/dL (3.5-5.2); Alkaline Phosphatase 57 IU/L (40-130); Anion Gap 15.7 (5-19); Aspartate Amino Transferase 23 U/L (0-40); Blood Urea Nitrogen 16 mg/dL (8-23); Calcium 9.1 mg/dL (8.5-10.5); Carbon Dioxide 27 mmol/L (22-29); Chloride 98 mmol/L (98-107); Glucose 112 mg/dL (65-115); Osmolality Calculated 284 mOsm/kg (285-295); Potassium 4.7 mmol/L (3.5-5.1); Sodium 136 mmol/L (136-145); Total Bilirubin 0.6 mg/dL (0.15-1.2); Total Protein 7.2 g/dL (6.6-8.7)
== END 2021-11-26 08:09 | disposition home or self-care (01) ==
PROVIDERS: PCP Family Medicine; Visit Provider Internal Medicine Hematology & Oncology
DX: C61 Malignant neoplasm of prostate (principal); C79.51 Secondary malignant neoplasm of bone
CPT/HCPCS: 36415; 80053; 84153; 85025; 99214

== ENCOUNTER 2021-11-26 09:30 | Oncology outpatient (recurring) (ONCR) | payer MEDICARE, MEDICAID, SELFPAY ==
--- NOTE | 2021-11-23 08:21 | NM_ITS ---
WS: [id number] NUCLEAR MEDICINE BONE SCAN Radiopharmaceutical: 22.9 Tc-99m MDP mCi IV Injection site: RIGHT antecubital Postinjection imaging delay: 1 hr CLINICAL INFORMATION: Bones Scan to be completed two weeks prior to visit COMPARISON: March 30, 2021 FINDINGS: Bone lesions: Diffuse blastic bony metastasis seen on the concurrent CT abdomen pelvis only demonstra te faint activity on today's bone scan presumably due to treatment effect. Less likely due to SuperSc an. Slightly decreased soft tissue activity but persistent renal activity. Faint tiny rib lesions RIG HT greater than LEFT. Faint patchy activity involving the lower thoracic and lumbar spine. Faint acti vity involving the proximal femurs bilaterally. Previously described bony uptake involving T10 vertebral body is persistent but slightly improved tod ay. RIGHT scapula uptake is no longer visualized. Stable bone activity involving the RIGHT hemisacrum and LEFT acetabulum extending into the LEFT inferior pubic ramus. Improved faint uptake involving th e LEFT ilium. Kidneys: Small amount of retained activity in the RIGHT kidney upper pole. Radiotracer excretion in t he distal RIGHT ureter visualized. Other findings: Degenerative uptake both AC joints. NM/NM bone scan whole body* [id number] IMPRESSION: 1. New diffuse blastic metastasis seen on the concurrent abdominal and pelvis CT demonstrates only faint low-grade activity presumably due to treatment effec t. Less likely this is due to SuperScan effect. Recommend correlation for activ e disease markers. 2. Otherwise the previously described lesions on the prior bone scan demonstra te similar activity or improvement 3. T10 vertebral body uptake is persistent but slightly improved. 4. Stable bone activity involving the RIGHT hemisacrum and LEFT acetabulum ext ending to the LEFT inferior pubic ramus 5. RIGHT scapula uptake has resolved and LEFT ilium uptake has improved.
--- NOTE | 2021-11-23 08:21 | CT_ITS ---
WS: [id number] CT ABDOMEN PELVIS TECHNIQUE: Noncontrast CT of the abdomen and pelvis with coronal and sagittal reformatted images. CLINICAL INFORMATION: CT A/P to be completed just prior to visit COMPARISON: March 30, 2021 DLP: 1496.[address] scans at [facility] use at least one of these dose optimization techniques: automated e xposure control; mA and/or kV adjustment per patient size (includes targeted exams where dose is matc hed to clinical indication); or iterative reconstruction. FINDINGS: Diffuse blastic metastasis throughout the visualized spine and proximal ribs significantly progressed compared to the prior examination. Diffuse blastic metastasis throughout the pelvis and sacrum. This extends into the proximal femurs. Significant progression compared to previous. Complete replacement of the T10 vertebral body with dense blastic metastasis. Mild compression superior endplate T11 with associated blastic metastatic lesion. Additional notable lesions involving the L1 and S2 vertebral b odies. Smaller lesions throughout the lower thoracic and lumbar spine involving the posterior element s. Progressed blastic metastasis involving the RIGHT hemisacrum. Dens blastic lesion involving the LE FT acetabulum extending into the inferior pubic ramus appears progressed. Slight bibasilar atelectasis. Stable hepatic cysts. Normal noncontrast spleen. Small esophageal hiata l hernia. Adrenal glands are normal. Bilateral renal cortical atrophy. No hydronephrosis. Noncontrast pancreas is normal. No hydronephrosis in either kidney. No periaortic lymphadenopathy. No pelvic or inguinal lymphadenopathy. Mild prostate enlargement measuring 4.7 CM. Fat-containing RIGHT inguinal hernia. No pelvic or inguin al lymphadenopathy. No evidence of high-grade small or large bowel obstruction. A few sigmoid diverti culi. Normal appendix in the RIGHT lower quadrant. Small fat-containing umbilical hernia. Small abdom inal aortic aneurysm is unchanged measuring 3.0 x 2.8 cm AP by transverse. CT/CT abdomen pelvis wo con [id number] IMPRESSION: 1. Diffuse blastic metastatic disease is significantly progressed since the pr ior examination involving the lower thoracic spine, lumbar spine, pelvis and sa josiah extending into the proximal femurs. This also involves the partially visua lized proximal ribs 2. No evidence of intra-abdominal metastatic disease. 3. Previously described nodular prostate has significantly improved in appeara nce measuring 4.7 cm maximum dimension today. 4. Improved findings of bladder outlet obstruction. 5. No other significant changes compared to previous.
[2021-11-26] MEDS: denosumab 120 mg SDV SUBCUT (09:53)
[2021-11-26] MEDS: leuprolide 22.5 mg Kit IM (10:08)
== END 2021-12-12 23:59 | disposition home or self-care (01) ==
PROVIDERS: PCP Family Medicine; Visit Provider Internal Medicine Hematology & Oncology
DX: Z51.11 Encounter for antineoplastic chemotherapy (principal); C61 Malignant neoplasm of prostate; C79.51 Secondary malignant neoplasm of bone; G47.30 Sleep apnea, unspecified
CPT/HCPCS: 36415; 74176; 78306; 80053; 84153; 85025; 96372; 96402; 99214; A9561; J0897; J9217

== ENCOUNTER 2021-12-28 12:32 | Oncology outpatient (recurring) (ONCR) | payer MEDICARE, MEDICAID, SELFPAY ==
[2021-12-28 11:40] LABS: Basophils # 0.1 10^3/uL (0.0-0.1); Eosinophils # 0.1 10^3/uL (0.0-0.8); Eosinophils % 2.1 %; Hematocrit 37.6 % (42.0-52.0); Hemoglobin 12.2 g/dL (11.7-16.6); Lymphocytes # 1.5 10^3/uL (0.8-4.8); Mean Corpuscular HGB Conc 32.4 g/dL (30.0-36.0); Mean Corpuscular Volume 98.7 fl (80-94); Mean Platelet Volume 11.6 fL (7.4-10.4); Monocytes # 0.4 10^3/uL (0.2-0.9); Monocytes % 6.8 %; Neutrophils # 3.07 10^3/uL (1.8-7.7); Neutrophils % 59.7 %; Nucleated Red Blood Cells % 0 %; Platelet Count 188 10^3/cmm (130-400); Red Blood Count 3.81 10^6/uL (4.1-5.3); Red Cell Distribution Width 16.5 % (12.1-15.1); White Blood Count 5.1 10^3/uL (4.0-10.0)
[2021-12-28 12:22] LABS: Alanine Aminotransferase 19 U/L (0-41); Albumin Level 4.2 g/dL (3.5-5.2); Alkaline Phosphatase 60 U/L (40-130); Anion Gap 14.5 (5-19); Aspartate Amino Transferase 22 U/L (0-40); Blood Urea Nitrogen 14 mg/dL (8-23); Carbon Dioxide 28 mmol/L (22-29); Chloride 103 mmol/L (98-107); Globulin 2.8 g/dL (1.3-4.6); Glucose 102 mg/dL (65-115); Osmolality Calculated 293 mOsm/kg (285-295); Potassium 4.5 mmol/L (3.5-5.1); Sodium 141 mmol/L (136-145); Total Bilirubin 0.4 mg/dL (0.15-1.2)
[2021-12-28] MEDS: denosumab 120 mg SDV SUBCUT (13:23)
== END 2022-01-12 23:59 | disposition home or self-care (01) ==
PROVIDERS: Nurse Practitioner Family; PCP Family Medicine; Visit Provider Internal Medicine Hematology & Oncology
DX: C61 Malignant neoplasm of prostate; C79.51 Secondary malignant neoplasm of bone; G47.30 Sleep apnea, unspecified; G89.3 Neoplasm related pain (acute) (chronic); Z79.818 Long term (current) use of other agents affecting estrogen receptors and estrogen levels; Z79.899 Other long term (current) drug therapy; Z87.891 Personal history of nicotine dependence; Z51.11 Encounter for antineoplastic chemotherapy
CPT/HCPCS: 36415; 80053; 84153; 85025; 96372; 99214; 99215; J0897

== ENCOUNTER 2022-02-01 10:15 | Oncology outpatient (recurring) (ONCR) | payer MEDICARE, MEDICAID, SELFPAY ==
[2022-02-01] MEDS: denosumab 120 mg SDV SUBCUT (12:29)
== END 2022-02-11 23:59 | disposition home or self-care (01) ==
PROVIDERS: PCP Family Medicine; Visit Provider Internal Medicine Hematology & Oncology
DX: C61 Malignant neoplasm of prostate (principal); C79.51 Secondary malignant neoplasm of bone; M54.6 Pain in thoracic spine; M54.50 Low back pain, unspecified; G47.30 Sleep apnea, unspecified; Z79.818 Long term (current) use of other agents affecting estrogen receptors and estrogen levels; Z79.899 Other long term (current) drug therapy; Z87.891 Personal history of nicotine dependence
CPT/HCPCS: 36415; 80053; 84153; 85025; 96372; 99214; J0897

== ENCOUNTER 2022-03-01 10:16 | Oncology outpatient (recurring) (ONCR) | payer MEDICARE, MEDICAID, SELFPAY ==
[2022-03-01 10:53] LABS: Basophils # 0.1 10^3/uL (0.0-0.1); Basophils % 1.6 %; Eosinophils # 0.1 10^3/uL (0.0-0.8); Eosinophils % 2.1 %; Hematocrit 35.4 % (42.0-52.0); Hemoglobin 11.7 g/dL (11.7-16.6); Lymphocytes # 1.7 10^3/uL (0.8-4.8); Lymphocytes % 28.3 %; Mean Corpuscular HGB Conc 33.1 g/dL (30.0-36.0); Mean Corpuscular Volume 102.9 fl (80-94); Mean Platelet Volume 11.8 fL (7.4-10.4); Monocytes # 0.4 10^3/uL (0.2-0.9); Monocytes % 5.7 %; Neutrophils # 3.78 10^3/uL (1.8-7.7); Neutrophils % 61.5 %; Nucleated Red Blood Cells % 0.3 %; Platelet Count 249 10^3/cmm (130-400); Red Blood Count 3.44 10^6/uL (4.1-5.3); Red Cell Distribution Width 18.6 % (12.1-15.1); White Blood Count 6.2 10^3/uL (4.0-10.0)
[2022-03-01 11:19] LABS: Alanine Aminotransferase 31 U/L (0-41); Albumin Level 4.1 g/dL (3.5-5.2); Alkaline Phosphatase 60 U/L (40-130); Anion Gap 15.5 (5-19); Aspartate Amino Transferase 32 U/L (0-40); Blood Urea Nitrogen 10 mg/dL (8-23); Carbon Dioxide 25 mmol/L (22-29); Chloride 101 mmol/L (98-107); Globulin 2.7 g/dL (1.3-4.6); Glucose 111 mg/dL (65-115); Osmolality Calculated 284 mOsm/kg (285-295); Potassium 4.5 mmol/L (3.5-5.1); Sodium 137 mmol/L (136-145); Total Bilirubin 0.6 mg/dL (0.15-1.2); Total Protein 6.8 g/dL (6.6-8.7)
[2022-03-01] MEDS: lidocaine 1% INJ 20 mL MDV (mL) SUBCUT (12:30)
[2022-03-01] MEDS: goserelin acetate 10.8 mg Implant SUBCUT (12:40)
== END 2022-03-14 23:59 | disposition home or self-care (01) ==
PROVIDERS: PCP Family Medicine; Visit Provider Internal Medicine Hematology & Oncology
DX: C61 Malignant neoplasm of prostate (principal); C79.51 Secondary malignant neoplasm of bone; M54.6 Pain in thoracic spine; M54.50 Low back pain, unspecified; G47.30 Sleep apnea, unspecified; Z79.818 Long term (current) use of other agents affecting estrogen receptors and estrogen levels; Z79.899 Other long term (current) drug therapy; Z87.891 Personal history of nicotine dependence; G89.3 Neoplasm related pain (acute) (chronic)
CPT/HCPCS: 36415; 80053; 84153; 85025; 96372; 96402; 99214; J9202

== ENCOUNTER 2022-05-03 12:38 | Oncology outpatient (recurring) (ONCR) | payer MEDICARE, MEDICAID, SELFPAY ==
[2022-05-03 13:40] LABS: Testosterone Total 2.5 ng/dL (193-740)
== END 2022-05-14 23:59 | disposition home or self-care (01) ==
PROVIDERS: PCP Family Medicine; Visit Provider Internal Medicine Hematology & Oncology
DX: C61 Malignant neoplasm of prostate (principal); C79.51 Secondary malignant neoplasm of bone; G89.3 Neoplasm related pain (acute) (chronic); Z79.818 Long term (current) use of other agents affecting estrogen receptors and estrogen levels; Z79.899 Other long term (current) drug therapy; Z79.52 Long term (current) use of systemic steroids; Z79.891 Long term (current) use of opiate analgesic; Z92.3 Personal history of irradiation; Z87.891 Personal history of nicotine dependence
CPT/HCPCS: 84153; 84403; 99214; 99215

== ENCOUNTER 2022-05-12 07:49 | Outpatient (CLI) | payer MEDICARE, MEDICAID, SELFPAY ==
--- NOTE | 2022-05-12 08:01 | USCV_ITS ---
El Puente Age: 72 Gender: M : 1950 Exam Date: 05/12/2022 09:04 Ordering Phys: Kris Howe MD Technologist: Liliam Bundy Exam Location: [facility] [place] Indication: Leg heaviness RIGHT LEFT Brachial 137.00 mmHg Brachial 139.00 mmHg Pressure (mmHg) Waveform Pressure (mmHg) Waveform 208.00 GIS PHYSICAL SCIENTIST 175.00 135.00 DPA 168.00 1.50 Ankle/Brachial Index 1.26 1.25 Pre-Exercise Toe Pressure 1.19 1.20 Pre-Exercise Toe/Brachial Index 1.10 FINDINGS Resting SOPHIE 1.5 on the right and 1.26 on the left. TBI 1.2 on the right and 1.1 on the left CONCLUSIONS Normal resting ABIs and TBIs bilaterally No significant arterial obstruction, based on the above findings. Dr Halley Hooks MD [facility] (Electronically Signed) Final Date: 13 May 2022 17:31 S
== END 2022-05-12 07:50 | disposition home or self-care (01) ==
LOC: RAD 07:51
PROVIDERS: PCP Family Medicine; Visit Provider Family Medicine
DX: I73.9 Peripheral vascular disease, unspecified (principal)
CPT/HCPCS: 93922

== ENCOUNTER 2022-05-25 11:47 | Oncology outpatient (recurring) (ONCR) | payer MEDICARE, MEDICAID, SELFPAY ==
[2022-05-25 12:34] LABS: Basophils # 0.1 10^3/uL (0.0-0.1); Basophils % 1.1 %; Eosinophils # 0.2 10^3/uL (0.0-0.8); Eosinophils % 2.4 %; Hematocrit 38.5 % (42.0-52.0); Hemoglobin 12.6 g/dL (11.7-16.6); Lymphocytes # 1.9 10^3/uL (0.8-4.8); Lymphocytes % 20.3 %; Mean Corpuscular HGB Conc 32.7 g/dL (30.0-36.0); Mean Corpuscular Hemoglobin 35.6 pg (28.0-34.0); Mean Corpuscular Volume 108.8 fl (80-94); Mean Platelet Volume 12.7 fL (7.4-10.4); Monocytes # 0.6 10^3/uL (0.2-0.9); Monocytes % 5.9 %; Neutrophils # 6.38 10^3/uL (1.8-7.7); Nucleated Red Blood Cells # 0.1 /100WBC; Nucleated Red Blood Cells % 0.8 %; Platelet Count 237 10^3/cmm (130-400); Red Blood Count 3.54 10^6/uL (4.1-5.3); Red Cell Distribution Width 16.5 % (12.1-15.1); White Blood Count 9.3 10^3/uL (4.0-10.0)
[2022-05-25 13:07] LABS: Alanine Aminotransferase 48 U/L (0-41); Albumin Level 4.4 g/dL (3.5-5.2); Alkaline Phosphatase 84 U/L (40-130); Anion Gap 17.5 (5-19); Aspartate Amino Transferase 60 U/L (0-40); Blood Urea Nitrogen 21 mg/dL (8-23); Calcium 8.4 mg/dL (8.5-10.5); Carbon Dioxide 21 mmol/L (22-29); Chloride 107 mmol/L (98-107); Globulin 2.8 g/dL (1.3-4.6); Glucose 142 mg/dL (65-115); Osmolality Calculated 297 mOsm/kg (285-295); Potassium 4.5 mmol/L (3.5-5.1); Sodium 141 mmol/L (136-145); Total Bilirubin 0.4 mg/dL (0.15-1.2); Total Protein 7.2 g/dL (6.6-8.7)
[2022-05-25] MEDS: lidocaine 1% INJ 20 mL MDV (mL) SUBCUT (15:01)
[2022-05-25] MEDS: goserelin acetate 10.8 mg Implant SUBCUT (15:02)
== END 2022-06-14 23:59 | disposition home or self-care (01) ==
PROVIDERS: PCP Family Medicine; Visit Provider Internal Medicine Hematology & Oncology
DX: C61 Malignant neoplasm of prostate (principal); C79.51 Secondary malignant neoplasm of bone; R00.0 Tachycardia, unspecified; K08.9 Disorder of teeth and supporting structures, unspecified; Z79.52 Long term (current) use of systemic steroids; Z79.818 Long term (current) use of other agents affecting estrogen receptors and estrogen levels; Z79.899 Other long term (current) drug therapy; Z87.891 Personal history of nicotine dependence
CPT/HCPCS: 36415; 80053; 84153; 85025; 96372; 96401; 99215; J9202

== ENCOUNTER 2022-06-22 14:41 | Oncology outpatient (recurring) (ONCR) | payer MEDICARE, MEDICAID, SELFPAY ==
[2022-06-15 11:56] LABS: Basophils % 0.6 %; Eosinophils # 0.1 10^3/uL (0.0-0.8); Hematocrit 40.1 % (42.0-52.0); Hemoglobin 13.2 g/dL (11.7-16.6); Lymphocytes # 1.2 10^3/uL (0.8-4.8); Lymphocytes % 18.1 %; Mean Corpuscular HGB Conc 32.9 g/dL (30.0-36.0); Mean Corpuscular Hemoglobin 34.2 pg (28.0-34.0); Mean Corpuscular Volume 103.9 fl (80-94); Mean Platelet Volume 11.9 fL (7.4-10.4); Monocytes # 0.4 10^3/uL (0.2-0.9); Monocytes % 5.9 %; Neutrophils % 74.1 %; Nucleated Red Blood Cells % 0 %; Platelet Count 216 10^3/cmm (130-400); Red Blood Count 3.86 10^6/uL (4.1-5.3); Red Cell Distribution Width 15.4 % (12.1-15.1); White Blood Count 6.8 10^3/uL (4.0-10.0)
[2022-06-15 12:27] LABS: Alanine Aminotransferase 39 U/L (0-41); Albumin Level 4.1 g/dL (3.5-5.2); Alkaline Phosphatase 81 U/L (40-130); Anion Gap 14.2 (5-19); Aspartate Amino Transferase 29 U/L (0-40); Blood Urea Nitrogen 13 mg/dL (8-23); Calcium 8.5 mg/dL (8.5-10.5); Carbon Dioxide 28 mmol/L (22-29); Chloride 102 mmol/L (98-107); Globulin 3.5 g/dL (1.3-4.6); Glucose 114 mg/dL (65-115); Osmolality Calculated 291 mOsm/kg (285-295); Potassium 4.2 mmol/L (3.5-5.1); Sodium 140 mmol/L (136-145); Total Bilirubin 0.5 mg/dL (0.15-1.2); Total Protein 7.6 g/dL (6.6-8.7)
--- NOTE | 2022-06-15 14:36 | ECG_ITS ---
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 Measurements Intervals [place] Rate: 67 P: 42 HI: 155 QRS: -31 QRSD: 93 T: 46 QT: 421 QTc: 446 Interpretive Statements SINUS RHYTHM LEFT AXIS DEVIATION [QRS AXIS < -30] PATTERN CONSISTENT WITH PULMONARY DISEASE No previous ECG available for comparison Electronically Signed On 06-15-2022 16:32:53 [employer] by Antwan Becerril M.D. [email or web address]
[2022-06-15] MEDS: denosumab 120 mg SDV SUBCUT (14:44)
== END 2022-07-12 23:59 | disposition home or self-care (01) ==
LOC: ONCMED 14:41
PROVIDERS: Nurse Practitioner; PCP Family Medicine; Visit Provider Internal Medicine Hematology & Oncology
DX: C61 Malignant neoplasm of prostate (principal); C79.51 Secondary malignant neoplasm of bone; Z79.899 Other long term (current) drug therapy; Z79.818 Long term (current) use of other agents affecting estrogen receptors and estrogen levels; R00.0 Tachycardia, unspecified
CPT/HCPCS: 80053; 84153; 85025; 93005; 96372; 99214; J0897

== ENCOUNTER 2022-08-10 11:30 | Oncology outpatient (recurring) (ONCR) | payer MEDICARE, MEDICAID, SELFPAY ==
[2022-07-13 12:18] LABS: Basophils # 0.1 10^3/uL (0.0-0.1); Basophils % 1.1 %; Eosinophils # 0.1 10^3/uL (0.0-0.8); Hematocrit 36.3 % (42.0-52.0); Hemoglobin 12.1 g/dL (11.7-16.6); Lymphocytes # 1.9 10^3/uL (0.8-4.8); Lymphocytes % 20.5 %; Mean Corpuscular HGB Conc 33.3 g/dL (30.0-36.0); Mean Corpuscular Hemoglobin 33.5 pg (28.0-34.0); Mean Corpuscular Volume 100.6 fl (80-94); Mean Platelet Volume 12.4 fL (7.4-10.4); Monocytes # 0.5 10^3/uL (0.2-0.9); Monocytes % 5.7 %; Neutrophils # 6.49 10^3/uL (1.8-7.7); Neutrophils % 70.7 %; Nucleated Red Blood Cells % 0.3 %; Platelet Count 255 10^3/cmm (130-400); Red Blood Count 3.61 10^6/uL (4.1-5.3); Red Cell Distribution Width 16.1 % (12.1-15.1); White Blood Count 9.2 10^3/uL (4.0-10.0)
[2022-07-13 13:01] LABS: Alanine Aminotransferase 19 U/L (0-41); Alkaline Phosphatase 57 U/L (40-130); Anion Gap 17.7 (5-19); Aspartate Amino Transferase 30 U/L (0-40); Blood Urea Nitrogen 10 mg/dL (8-23); Calcium 8.4 mg/dL (8.5-10.5); Carbon Dioxide 24 mmol/L (22-29); Chloride 99 mmol/L (98-107); Globulin 2.9 g/dL (1.3-4.6); Glucose 162 mg/dL (65-115); Osmolality Calculated 287 mOsm/kg (285-295); Potassium 3.7 mmol/L (3.5-5.1); Sodium 137 mmol/L (136-145); Total Bilirubin 0.6 mg/dL (0.15-1.2); Total Protein 6.9 g/dL (6.6-8.7)
[2022-07-13] MEDS: denosumab 120 mg SDV SUBCUT (13:57)
[2022-08-10 12:26] LABS: Basophils # 0.1 10^3/uL (0.0-0.1); Eosinophils # 0.2 10^3/uL (0.0-0.8); Eosinophils % 2.4 %; Hemoglobin 11.7 g/dL (11.7-16.6); Lymphocytes # 1.9 10^3/uL (0.8-4.8); Lymphocytes % 20.3 %; Mean Corpuscular HGB Conc 32.5 g/dL (30.0-36.0); Mean Corpuscular Hemoglobin 33.1 pg (28.0-34.0); Mean Corpuscular Volume 101.7 fl (80-94); Monocytes # 0.5 10^3/uL (0.2-0.9); Monocytes % 5.4 %; Neutrophils # 6.57 10^3/uL (1.8-7.7); Neutrophils % 70.3 %; Nucleated Red Blood Cells % 0 %; Platelet Count 234 10^3/cmm (130-400); Red Blood Count 3.54 10^6/uL (4.1-5.3); Red Cell Distribution Width 18.3 % (12.1-15.1); White Blood Count 9.3 10^3/uL (4.0-10.0)
[2022-08-10 12:53] LABS: Alanine Aminotransferase 17 U/L (0-41); Albumin Level 3.9 g/dL (3.5-5.2); Alkaline Phosphatase 54 U/L (40-130); Anion Gap 15.2 (5-19); Aspartate Amino Transferase 22 U/L (0-40); Blood Urea Nitrogen 17 mg/dL (8-23); Calcium 8.8 mg/dL (8.5-10.5); Carbon Dioxide 23 mmol/L (22-29); Chloride 109 mmol/L (98-107); Globulin 2.8 g/dL (1.3-4.6); Glucose 111 mg/dL (65-115); Osmolality Calculated 298 mOsm/kg (285-295); Potassium 4.2 mmol/L (3.5-5.1); Sodium 143 mmol/L (136-145); Testosterone Total 2.5 ng/dL (193-740); Total Bilirubin 0.8 mg/dL (0.15-1.2); Total Protein 6.7 g/dL (6.6-8.7)
[2022-08-10] MEDS: denosumab 120 mg SDV SUBCUT (13:03)
[2022-08-10 13:11] VITALS: BP 142/77; PULSE 86; RESP 18; TEMP 36.4; O2SAT 95
== END 2022-08-12 23:59 | disposition home or self-care (01) ==
PROVIDERS: Nurse Practitioner; PCP Family Medicine; Visit Provider Internal Medicine Hematology & Oncology
DX: C61 Malignant neoplasm of prostate (principal); C79.51 Secondary malignant neoplasm of bone; Z79.899 Other long term (current) drug therapy
CPT/HCPCS: 36415; 80053; 84153; 84403; 85025; 96372; 99214; J0897

== ENCOUNTER → 2022-08-31 14:32 | Outpatient (BNVA) | payer MEDICARE, MEDICAID, SELFPAY | PROVIDERS: PCP Family Medicine; Visit Provider Internal Medicine | DX: I10 Essential (primary) hypertension (principal); R00.2 Palpitations; R06.09 Other forms of dyspnea | CPT/HCPCS: 93005; 99204 ==

== ENCOUNTER 2022-09-07 08:30 | Oncology outpatient (recurring) (ONCR) | payer MEDICARE, MEDICAID, SELFPAY ==
[2022-08-17 08:53] LABS: Basophils # 0.1 10^3/uL (0.0-0.1); Basophils % 1.1 %; Eosinophils # 0.2 10^3/uL (0.0-0.8); Eosinophils % 2.9 %; Hematocrit 34.1 % (42.0-52.0); Hemoglobin 11.3 g/dL (11.7-16.6); Lymphocytes # 1.7 10^3/uL (0.8-4.8); Lymphocytes % 25.8 %; Mean Corpuscular HGB Conc 33.1 g/dL (30.0-36.0); Mean Corpuscular Hemoglobin 32.8 pg (28.0-34.0); Mean Corpuscular Volume 98.8 fl (80-94); Mean Platelet Volume 12.2 fL (7.4-10.4); Monocytes # 0.4 10^3/uL (0.2-0.9); Monocytes % 5.9 %; Neutrophils # 4.19 10^3/uL (1.8-7.7); Neutrophils % 63.1 %; Nucleated Red Blood Cells % 0.3 %; Platelet Count 226 10^3/cmm (130-400); Red Blood Count 3.45 10^6/uL (4.1-5.3); Red Cell Distribution Width 18.5 % (12.1-15.1); White Blood Count 6.6 10^3/uL (4.0-10.0)
[2022-08-17 09:25] LABS: Alanine Aminotransferase 21 U/L (0-41); Albumin Level 3.9 g/dL (3.5-5.2); Alkaline Phosphatase 49 U/L (40-130); Aspartate Amino Transferase 30 U/L (0-40); Blood Urea Nitrogen 11 mg/dL (8-23); Calcium 8.5 mg/dL (8.5-10.5); Carbon Dioxide 23 mmol/L (22-29); Chloride 106 mmol/L (98-107); Globulin 3.1 g/dL (1.3-4.6); Glucose 107 mg/dL (65-115); Osmolality Calculated 288 mOsm/kg (285-295); Sodium 139 mmol/L (136-145); Testosterone Total 2.5 ng/dL (193-740); Total Bilirubin 0.9 mg/dL (0.15-1.2)
[2022-08-17 10:51] VITALS: BP 153/84; PULSE 64; RESP 18; TEMP 36.5; O2SAT 98
[2022-08-17] MEDS: goserelin acetate 10.8 mg Implant SUBCUT (11:03)
[2022-09-07 08:56] LABS: Basophils # 0.2 10^3/uL (0.0-0.1); Basophils % 1.6 %; Eosinophils # 0.3 10^3/uL (0.0-0.8); Eosinophils % 3.3 %; Hematocrit 38.4 % (42.0-52.0); Hemoglobin 12.6 g/dL (11.7-16.6); Lymphocytes # 2.5 10^3/uL (0.8-4.8); Lymphocytes % 25.4 %; Mean Corpuscular HGB Conc 32.8 g/dL (30.0-36.0); Mean Corpuscular Hemoglobin 33.2 pg (28.0-34.0); Mean Corpuscular Volume 101.3 fl (80-94); Mean Platelet Volume 12.4 fL (7.4-10.4); Monocytes # 0.6 10^3/uL (0.2-0.9); Monocytes % 6.4 %; Neutrophils # 6.08 10^3/uL (1.8-7.7); Neutrophils % 62.2 %; Nucleated Red Blood Cells # 0.1 /100WBC; Nucleated Red Blood Cells % 0.5 %; Platelet Count 291 10^3/cmm (130-400); Red Blood Count 3.79 10^6/uL (4.1-5.3); Red Cell Distribution Width 19.4 % (12.1-15.1); White Blood Count 9.8 10^3/uL (4.0-10.0)
[2022-09-07 09:23] LABS: Alanine Aminotransferase 28 U/L (0-41); Albumin Level 4.3 g/dL (3.5-5.2); Alkaline Phosphatase 55 U/L (40-130); Aspartate Amino Transferase 39 U/L (0-40); Blood Urea Nitrogen 13 mg/dL (8-23); Carbon Dioxide 23 mmol/L (22-29); Chloride 104 mmol/L (98-107); Glucose 108 mg/dL (65-115); Osmolality Calculated 293 mOsm/kg (285-295); Sodium 141 mmol/L (136-145); Total Bilirubin 0.8 mg/dL (0.15-1.2); Total Protein 7.3 g/dL (6.6-8.7)
[2022-09-07] MEDS: denosumab 120 mg SDV SUBCUT (11:48)
[2022-09-07 11:52] VITALS: BP 132/74; PULSE 74; RESP 16; TEMP 36.6; O2SAT 98
== END 2022-09-11 23:59 | disposition home or self-care (01) ==
PROVIDERS: Nurse Practitioner; PCP Family Medicine; Visit Provider Internal Medicine Hematology & Oncology
DX: C61 Malignant neoplasm of prostate (principal); C79.51 Secondary malignant neoplasm of bone; R06.02 Shortness of breath; J98.11 Atelectasis; F15.959 Other stimulant use, unspecified with stimulant-induced psychotic disorder, unspecified; Z79.52 Long term (current) use of systemic steroids; Z79.818 Long term (current) use of other agents affecting estrogen receptors and estrogen levels; Z79.899 Other long term (current) drug therapy; Z87.891 Personal history of nicotine dependence
CPT/HCPCS: 36415; 80053; 84153; 84403; 85025; 96372; 96402; 99214; J0897; J9202

== ENCOUNTER 2022-09-15 09:53 | Outpatient (CLI) | payer MEDICARE, MEDICAID, SELFPAY ==
--- NOTE | 2022-09-15 10:00 | USCV_ITS ---
KwameEl Age: 72 Gender: M : 1950 Exam Date: 09/15/2022 10:30 Ordering Phys: Antwan Becerril M.D ([email or web address]) Technologist: DAVID [place] [facility] [place]: CHEST PAIN BP: 124 / 70 HR: 84 Rhythm: Sinus Technical Quality: Adequate MEASUREMENTS (Male / Female) Normal Values 2D ECHO LVOT Diameter 2.0 cm LV Ejection Fraction MOD 2C 64.2 % LV Ejection Fraction 2C AL 64.2 % LA Diameter 3.3 cm LA Width 3.7 cm LA Height 5.0 cm RA Width 4.3 cm RA Height 5.3 cm Aorta at Sinotubular Diameter 2.2 cm M-MODE Aortic Annulus Diameter 3.0 cm LA Ao Ratio MM 1.1 MV E Point Septal Separation 0.9 cm DOPPLER AV Peak Velocity 172.0 cm/s LVOT Peak Velocity 142.0 cm/s AV Area Cont Eq vti 2.5 cm squared AV Area Cont Eq pk 2.6 cm squared MV Peak Velocity 83.0 cm/s MV Area PHT 2.7 cm squared Mitral E to A Ratio 1.3 MV E' Velocity 51.0 cm/s Mitral E to MV E' Ratio 8.0 Mitral E to LV E' Lateral Ratio 6.9 Mitral E to LV E' Septal Ratio 9.5 TR Peak Velocity 217.9 cm/s TR Peak Gradient 19.0 mmHg TR Mean Velocity 180.2 cm/s TR Mean Gradient 13.3 mmHg TR Velocity Time Integral 49.6 cm TV Peak E Velocity 66.0 cm/s Right Atrial Pressure 8.0 mmHg Pulmonary Artery Systolic Pressu 27.0 mmHg PV Peak Velocity 104.0 cm/s FINDINGS Left Ventricle Left ventricle is normal in size. LV systolic function is normal with EF of 60 to 65%. No regional wall motion abnormalities. Right Ventricle Normal in size and function Right Atrium Not well visualized Left Atrium Normal in size Mitral Valve Structurally normal mitral valve. Trace mitral regurgitation. Aortic Valve Grossly normal. No significant stenosis or regurgitation. Tricuspid Valve Mild tricuspid regurgitation. Pulmonary artery systolic pressure is normal Pulmonic Valve Not well visualized Pericardium Normal Aorta Normal in size IVC Appears to be normal CONCLUSIONS LV systolic function is normal with EF of 60 to 65% Trace mitral regurgitation Mild tricuspid regurgitation Compared to prior echocardiogram from 2020, no significant changes are seen Antwan Becerril MD (Electronically Signed) Final Date: 01 Oct 2022 10:15 S
[2022-09-15] MEDS: perflutren protein-a microsphr 0.22 mg/mL SDV 3 mL IV (12:26)
== END 2022-09-15 09:54 | disposition home or self-care (01) ==
LOC: RAD 09:57
PROVIDERS: PCP Family Medicine; Visit Provider Internal Medicine
DX: R07.9 Chest pain, unspecified (principal); R06.02 Shortness of breath; I07.1 Rheumatic tricuspid insufficiency
CPT/HCPCS: C8929; Q9956

== ENCOUNTER 2022-09-22 06:58 | Outpatient (CLI) | payer MEDICARE, MEDICAID, SELFPAY ==
--- NOTE | 2022-09-22 07:00 | CT_ITS ---
WS: [id number] CT chest w con* [id number] HISTORY: worsening shortness of breath TECHNIQUE: Axial imaging performed through the thorax. Coronal and sagittal reformats are submitted. All CT scans at [facility] use at least one of these dose optimization techniques: automated exposure control; mA and/or kV adjustment per patient size (includes targeted exams where dose is mat ched to clinical indication); or iterative reconstruction. CONTRAST: Omnipaque 350; 100 mL IV. DLP: 695.52 mGy.cm COMPARISON: PET/CT report 04/28/2022. Lungs and central airway: No pulmonary mass or nodule. No pneumonia. Mild pulmonary hyperexpansion. Pleura: Normal. No pleural effusion. Heart and pericardium: Normal size heart with no pericardial effusion. Mediastinum and juan jose: No mediastinum or hilar adenopathy. Vessels: Mild atherosclerosis aorta. Normal size pulmonary artery. Chest wall and lower neck: No soft tissue masses. Upper abdomen: Hepatic steatosis. Hepatic cysts. The largest cyst in the RIGHT lobe measures 6.4 x 5. 1 cm. No solid masses. Osseous structures: Innumerable sclerotic foci throughout the visualized spine, sternum and ribs. Bon es of the thorax are all involved. CT/CT chest w con* [id number] IMPRESSION: 1. No pulmonary mass or pneumonia. 2. 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 3. No adenopathy. 4. Mild atherosclerosis aorta. 5. Hepatic cysts and hepatic steatosis.
== END 2022-09-22 06:59 | disposition home or self-care (01) ==
LOC: RAD 07:03
PROVIDERS: PCP Family Medicine; Visit Provider Nurse Practitioner
DX: R06.02 Shortness of breath (principal); C61 Malignant neoplasm of prostate; C79.51 Secondary malignant neoplasm of bone; I70.0 Atherosclerosis of aorta; K76.89 Other specified diseases of liver; K76.0 Fatty (change of) liver, not elsewhere classified
CPT/HCPCS: 71260; Q9967

== ENCOUNTER 2022-10-05 10:07 | Oncology outpatient (recurring) (ONCR) | payer MEDICARE, MEDICAID, SELFPAY ==
[2022-10-05 10:53] LABS: Basophils # 0.1 10^3/uL (0.0-0.1); Basophils % 1.3 %; Eosinophils # 0.2 10^3/uL (0.0-0.8); Hematocrit 34.4 % (42.0-52.0); Hemoglobin 11.3 g/dL (11.7-16.6); Lymphocytes # 1.8 10^3/uL (0.8-4.8); Lymphocytes % 23.2 %; Mean Corpuscular HGB Conc 32.8 g/dL (30.0-36.0); Mean Corpuscular Hemoglobin 34.9 pg (28.0-34.0); Mean Corpuscular Volume 106.2 fl (80-94); Mean Platelet Volume 12.1 fL (7.4-10.4); Monocytes # 0.5 10^3/uL (0.2-0.9); Monocytes % 5.9 %; Neutrophils # 5.03 10^3/uL (1.8-7.7); Neutrophils % 65.4 %; Nucleated Red Blood Cells % 0.3 %; Platelet Count 230 10^3/cmm (130-400); Red Blood Count 3.24 10^6/uL (4.1-5.3); Red Cell Distribution Width 20.2 % (12.1-15.1); White Blood Count 7.7 10^3/uL (4.0-10.0)
[2022-10-05 11:16] LABS: Alanine Aminotransferase 43 U/L (0-41); Albumin Level 4.1 g/dL (3.5-5.2); Alkaline Phosphatase 53 U/L (40-130); Anion Gap 16.5 (5-19); Aspartate Amino Transferase 50 U/L (0-40); Blood Urea Nitrogen 18 mg/dL (8-23); Calcium 8.6 mg/dL (8.5-10.5); Carbon Dioxide 22 mmol/L (22-29); Chloride 106 mmol/L (98-107); Globulin 2.8 g/dL (1.3-4.6); Glucose 128 mg/dL (65-115); Osmolality Calculated 294 mOsm/kg (285-295); Potassium 4.5 mmol/L (3.5-5.1); Sodium 140 mmol/L (136-145); Total Bilirubin 0.5 mg/dL (0.15-1.2); Total Protein 6.9 g/dL (6.6-8.7)
[2022-10-05 12:30] LABS: NT Pro B Type Natriuretic Pept 101 pg/mL (0-125)
[2022-10-05] MEDS: denosumab 120 mg SDV SUBCUT (13:16)
[2022-10-05 13:26] VITALS: BP 123/70; PULSE 77; RESP 18; TEMP 36.1; O2SAT 95
== END 2022-10-12 23:59 | disposition home or self-care (01) ==
PROVIDERS: PCP Family Medicine; Visit Provider Internal Medicine Hematology & Oncology
DX: C61 Malignant neoplasm of prostate (principal); C79.51 Secondary malignant neoplasm of bone; Z79.818 Long term (current) use of other agents affecting estrogen receptors and estrogen levels; Z79.899 Other long term (current) drug therapy; Z87.891 Personal history of nicotine dependence; R06.02 Shortness of breath; I70.0 Atherosclerosis of aorta; K76.0 Fatty (change of) liver, not elsewhere classified; R00.2 Palpitations; Z79.52 Long term (current) use of systemic steroids
CPT/HCPCS: 36415; 80053; 83880; 84153; 85025; 96401; 99214; J0897

== ENCOUNTER 2022-11-09 15:00 | Oncology outpatient (recurring) (ONCR) | payer MEDICARE, MEDICAID, SELFPAY ==
[2022-11-02 12:42] VITALS: BP 157/81; PULSE 87; RESP 18; TEMP 36; O2SAT 95
[2022-11-02 12:53] LABS: Basophils # 0.1 10^3/uL (0.0-0.1); Basophils % 1.2 %; Eosinophils # 0.1 10^3/uL (0.0-0.8); Eosinophils % 1.5 %; Hematocrit 36.7 % (42.0-52.0); Hemoglobin 12.3 g/dL (11.7-16.6); Lymphocytes # 1.8 10^3/uL (0.8-4.8); Lymphocytes % 21.7 %; Mean Corpuscular HGB Conc 33.5 g/dL (30.0-36.0); Mean Corpuscular Hemoglobin 34.7 pg (28.0-34.0); Mean Corpuscular Volume 103.7 fl (80-94); Mean Platelet Volume 12.5 fL (7.4-10.4); Monocytes # 0.4 10^3/uL (0.2-0.9); Monocytes % 4.6 %; Neutrophils # 5.99 10^3/uL (1.8-7.7); Neutrophils % 70.6 %; Nucleated Red Blood Cells % 0 %; Platelet Count 269 10^3/cmm (130-400); Red Blood Count 3.54 10^6/uL (4.1-5.3); Red Cell Distribution Width 17.5 % (12.1-15.1); White Blood Count 8.5 10^3/uL (4.0-10.0)
[2022-11-02 13:20] LABS: Alanine Aminotransferase 28 U/L (0-41); Alkaline Phosphatase 57 U/L (40-130); Aspartate Amino Transferase 25 U/L (0-40); Blood Urea Nitrogen 15 mg/dL (8-23); Carbon Dioxide 24 mmol/L (22-29); Chloride 103 mmol/L (98-107); Globulin 2.9 g/dL (1.3-4.6); Glucose 145 mg/dL (65-115); Osmolality Calculated 295 mOsm/kg (285-295); Sodium 141 mmol/L (136-145); Total Bilirubin 0.4 mg/dL (0.15-1.2); Total Protein 6.9 g/dL (6.6-8.7)
[2022-11-02] MEDS: denosumab 120 mg SDV SUBCUT (14:52)
[2022-11-09] MEDS: lidocaine 1% INJ 20 mL MDV (mL) SUBCUT (14:31)
[2022-11-09] MEDS: goserelin acetate 10.8 mg Implant SUBCUT (14:50)
[2022-11-09 14:55] VITALS: BP 144/86; PULSE 72; RESP 18; TEMP 36.2; O2SAT 96
== END 2022-11-11 23:59 | disposition home or self-care (01) ==
PROVIDERS: Nurse Practitioner; PCP Family Medicine; Visit Provider Internal Medicine Hematology & Oncology
DX: C61 Malignant neoplasm of prostate (principal); C79.51 Secondary malignant neoplasm of bone; Z79.818 Long term (current) use of other agents affecting estrogen receptors and estrogen levels; Z79.899 Other long term (current) drug therapy
CPT/HCPCS: 36415; 80053; 84153; 85025; 96372; 96402; 99214; J0897; J9202

== ENCOUNTER 2022-11-30 15:04 | Oncology outpatient (recurring) (ONCR) | payer MEDICARE, MEDICAID, SELFPAY ==
[2022-11-30] MEDS: denosumab 120 mg SDV SUBCUT (15:43)
[2022-11-30 15:50] VITALS: BP 122/74; PULSE 93; TEMP 35.9; O2SAT 95
== END 2022-12-12 23:59 | disposition home or self-care (01) ==
LOC: ONCMED 15:04
PROVIDERS: PCP Family Medicine; Visit Provider Internal Medicine Hematology & Oncology
DX: C61 Malignant neoplasm of prostate (principal)
CPT/HCPCS: 96372; J0897

== ENCOUNTER 2022-12-08 08:36 | Outpatient (CLI) | payer MEDICARE, MEDICAID, SELFPAY ==
--- NOTE | 2022-12-08 08:51 | NM_ITS ---
WS: [id number] NUCLEAR MEDICINE BONE SCAN Radiopharmaceutical: 23.7 Tc-99m MDP mCi IV Injection site: antecubital Postinjection imaging delay: 1 hr CLINICAL INFORMATION: METASTATIC PROSTATE CANCER TO BONE COMPARISON: 2021 FINDINGS: Bone lesions: Interval resolution of the previously described T10 vertebral body activity. Progressed activity involving the RIGHT hemisacrum extending adjacent to the sacroiliac joint. Improved and essentially resolved activity previously described involving the LEFT inferior pubic salo us and LEFT ilium. Previously described faint rib uptake LEFT greater than RIGHT appears stable. Soft tissue contours: Normal. Kidneys: Small amount of retained activity in the RIGHT kidney upper pole similar to previous. Radiot racer excretion in the distal RIGHT ureter visualized. Other findings: Degenerative uptake both AC joints. NJ/NJ bone scan whole body* [id number] IMPRESSION: 1. Radiotracer uptake in the RIGHT hemisacrum appears more intense and progres sed today. This extends adjacent to the sacroiliac joint. 2. Associated activity in the S1 vertebral body appears progressed. 3. Improved uptake in the LEFT inferior pubic ramus and LEFT ilium. Previous u ptake in the T10 vertebral body has resolved. 4. No other interval changes.
== END 2022-12-08 08:37 | disposition home or self-care (01) ==
LOC: RAD 08:38
PROVIDERS: PCP Family Medicine; Visit Provider Radiology Radiation Oncology
DX: C79.51 Secondary malignant neoplasm of bone (principal)
CPT/HCPCS: 78306; A9561

== ENCOUNTER 2022-12-12 15:33 | Outpatient (CLI) | payer MEDICARE, MEDICAID, SELFPAY ==
--- NOTE | 2022-12-12 15:35 | CTR_ITS ---
PROCEDURE INFORMATION: Exam: CT Chest With Contrast; Diagnostic Exam date and time: 12/12/2022 5:09 PM Age: 72 years old Clinical indication: Condition or disease; Other: Prostate cancer metastatic to bone; Follow-up oncological assessment; Additional info: Cancer, metastatic to bone, prostate cancer TECHNIQUE: Imaging protocol: Diagnostic computed tomography of the chest with contrast. Radiation optimization: All CT scans at this facility use at least one of these dose optimization techniques: automated exposure control; mA and/or kV adjustment per patient size (includes targeted exams where dose is matched to clinical indication); or iterative reconstruction. Contrast material: OMNI 350; Contrast volume: 95 ml; Contrast route: INTRAVENOUS (IV); REPORTING DATA: Count of CT and Cardiac NM exams in prior 12 months: This patient has received 2 known CTs and 0 known cardiac nuclear medicine studies in the 12 months prior to the current study. COMPARISON: 1. CT chest w con* [id number] 09/22/2022 7:[address] abdomen pelvis wo con [id number] 11/23/2021 9:21 AM RADIATION DOSE METRICS: Total DLP (mGy-cm): 1898.48 FINDINGS: Lungs: 7 mm nodule at the left lower lobe is stable from November 2021. Mild demd-qvqugaf-abud-right lung base linear atelectasis versus scarring. No consolidation. Pleural spaces: Unremarkable. No pneumothorax. No pleural effusion. Heart: Unremarkable. No cardiomegaly. No pericardial effusion. Lymph nodes: No enlarged lymph nodes. Vasculature: Four vessel left aortic arch. Mild systemic atherosclerotic calcification without aortic aneurysm. Diaphragm: Small hiatal hernia. Mild coronary artery calcification. Bones/joints: No acute fracture. Widespread predominantly osteoblastic lesions throughout the imaged axial and proximal appendicular skeletal system, stable. Soft tissues: 1 cm superficial subcutaneous epidermal inclusion cyst at the posterior right shoulder. PROCEDURE INFORMATION: Exam: CT Abdomen And Pelvis With Contrast Exam date and time: 12/12/2022 5:09 PM Age: 72 years old Clinical indication: Condition or disease; Other: Prostate cancer metastatic to bone; Follow-up oncological assessment; Additional info: Cancer, metastatic to bone, prostate cancer TECHNIQUE: Imaging protocol: Computed tomography of the abdomen and pelvis with contrast. Radiation optimization: All CT scans at this facility use at least one of these dose optimization techniques: automated exposure control; mA and/or kV adjustment per patient size (includes targeted exams where dose is matched to clinical indication); or iterative reconstruction. Contrast material: OMNI 350; Contrast volume: 95 ml; Contrast route: INTRAVENOUS (IV); REPORTING DATA: Count of CT and Cardiac NM exams in prior 12 months: This patient has received 2 known CTs and 0 known cardiac nuclear medicine studies in the 12 months prior to the current study. COMPARISON: 1. CT abdomen pelvis wo con [id number] 11/23/2021 9:[address] abdomen pelvis wo/w [id number] 03/30/2021 12:[address] abdomen pelvis w con* [id number] 04/17/2019 9:46 AM RADIATION DOSE METRICS: Total DLP (mGy-cm): 1898.48 FINDINGS: Liver: Multiple fluid density simple hepatic cysts and subcentimeter hypodensities stable from April 2019. Gallbladder and bile ducts: Normal. No calcified stones. No ductal dilation. Pancreas: Normal without ductal dilatation. Spleen: Normal. Adrenal glands: Normal. No mass. Kidneys and ureters: Normal. No hydronephrosis. Stomach and bowel: No dilatation. No mucosal thickening. Colonic diverticulosis without findings of diverticulitis. Appendix: Normal. Intraperitoneal space: No free air, free fluid, or well-organized fluid collection. Vasculature: Stable infrarenal abdominal aortic dilatation measuring 3.2 cm. Lymph nodes: No enlarged lymph nodes. Urinary bladder: Urinary bladder is unremarkable. Reproductive: Unremarkable as visualized. Bones/joints: No acute fracture. Widespread predominantly osteoblastic metastatic disease throughout the imaged axial and proximal appendicular skeletal system mildly progressed from November 2021 with large confluent sclerotic lesion at the medial right ilium and additional smaller foci such as at the L1 vertebral body. Soft tissues: Small fat containing ekpjv-tuccyip-hsnz-left inguinal hernias. Moderate systemic atherosclerotic calcification. CT/CT chest abdpel w/*[id number] IMPRESSION: 1. No acute pulmonary findings. Stable 7 mm left lower lobe nodule. 2. Widespread osseous metastatic disease stable from September 2022. IMPRESSION: 1. No acute findings. 2. Widespread osseous metastatic disease progressed from November 2021. 3. Stable infrarenal abdominal aortic aneurysm measuring 3.2 cm.
[2022-12-12] MEDS: iohexol 350 mg/mL 500 mL Btl (per mL) PO (16:57)
[2022-12-12] MEDS: iohexol 350 mg/mL 500 mL Btl (per mL) IV (17:11)
== END 2022-12-12 15:34 | disposition home or self-care (01) ==
PROVIDERS: PCP Family Medicine; Visit Provider Radiology Radiation Oncology
DX: C79.51 Secondary malignant neoplasm of bone (principal); C61 Malignant neoplasm of prostate
CPT/HCPCS: 71260; 74177; Q9967

== ENCOUNTER 2023-01-02 10:32 | Emergency (ER) | payer MEDICARE, MEDICAID, SELFPAY ==
[2023-01-02 10:36] VITALS: BMI 37.1
[2023-01-02 10:41] VITALS: BP 164/94; PULSE 111; RESP 18; TEMP 36.7; O2SAT 95
[2023-01-02 12:11] VITALS: BP 156/105; PULSE 92; RESP 18; O2SAT 96
--- NOTE | 2023-01-02 12:27 | CTR_ITS ---
PROCEDURE INFORMATION: Exam: CT Abdomen And Pelvis With Contrast Exam date and time: 01/02/2023 1:40 PM Age: 72 years old Clinical indication: Abdominal pain; Localized; Lower; Additional info: Pelvic pain and change in stools TECHNIQUE: Imaging protocol: Computed tomography of the abdomen and pelvis with contrast. Radiation optimization: All CT scans at this facility use at least one of these dose optimization techniques: automated exposure control; mA and/or kV adjustment per patient size (includes targeted exams where dose is matched to clinical indication); or iterative reconstruction. Contrast material: OMNI 350; Contrast volume: 100 ml; Contrast route: INTRAVENOUS (IV); REPORTING DATA: Count of CT and Cardiac NM exams in prior 12 months: This patient has received 3 known CTs and 0 known cardiac nuclear medicine studies in the 12 months prior to the current study. COMPARISON: 1. CT chest abdpel w/*[id number] 12/12/2022 5:[address] abdomen pelvis wo con [id number] 11/23/2021 9:[address] abdomen pelvis wo/w [id number] 03/30/2021 12:11 PM RADIATION DOSE METRICS: Total DLP (mGy-cm): 1334.59 FINDINGS: Lungs: Mild bibasilar platelike atelectasis and/or scarring. Diaphragm: Small hiatal hernia. Liver: Multiple fluid density simple hepatic cysts and subcentimeter hypodensities are stable. Gallbladder and bile ducts: Normal. No calcified stones. No ductal dilation. Pancreas: Normal without ductal dilatation. Spleen: Normal. Adrenal glands: Stable appearance of the left adrenal gland with possible small myelolipoma. Normal right adrenal gland. Kidneys and ureters: No calcified urolithiasis or hydronephrosis. Short-segment right distal ureteral dilatation similar to prior exams. Stomach and bowel: No dilatation. No evidence of mucosal thickening. Colonic diverticulosis without findings of diverticulitis. Appendix: Normal. Intraperitoneal space: No free air, free fluid, or well-organized fluid collection. Vasculature: Moderate systemic atherosclerotic calcification with stable 3.2 cm infrarenal abdominal aortic dilatation. Lymph nodes: No enlarged lymph nodes. Urinary bladder: Urinary bladder is unremarkable. Reproductive: Unremarkable as visualized. Bones/joints: No acute fracture. Widespread predominantly osteoblastic metastatic disease throughout the imaged axial and proximal appendicular skeletal system not significantly changed from November 2022. Soft tissues: Small fat containing jsmcj-opqbmly-swzq-left inguinal hernias. CT/CT abdomen pelvis w con* [id number] IMPRESSION: 1. No acute findings. 2. Chronic and incidental findings as above.
--- NOTE | 2023-01-02 12:28 | ED_ITS ---
HPI - General Adult General: Chief complaint: General Medical Stated complaint: bowel issues Time Seen by Provider: 01/02/23 11:59 Source: patient Mode of arrival: ambulatory Limitations: no limitations History of Present Illness: This patient makes his way to the emergency department today because he concerned about change in stools that occurred over the past 4 weeks or so. He states that approximately month ago he noted that his stools were smaller in caliber. He states that there was no pain or blood etc. associated with change. He denies any recent travel antibiotic use or change in his diet. Subsequently he has gone to a low residue diet. He states over the past couple weeks he has noted that he has had subsequent change in his stools again with no blood black tarry stools etc. Also thinks that when he urinates he has seen what he thinks is brownish material in the urine. He does not have a history of any prior abdominal surgeries. He states he has had diverticulitis in the past and the fullness he feels in his lower abdomen feels similar to that condition. He also relates that he has had stage IV prostate cancer diagnosed here and followed by oncology here and he is a candidate for radium implants in [place] but that has not completed yet. He denies any subjective symptoms such as fevers chills nausea vomiting and states he has been eating and drinking normally. He has had no change otherwise in his urinary habits he has significant nocturia and decreased velocity of his urine. Associated symptoms: Deny chest pain, dyspnea, nausea, rash, palpitations or vomiting Review of Systems Const: Denies: fever(s), change in appetite or change in weight ENMT: Denies: throat pain or odynophagia Card: Denies: chest pain, palpitations or irregular heart rhythm Resp: Denies: dyspnea, productive cough or non-productive cough GI: Reports: change in bowel habits; Denies: nausea, vomiting, fecal incontinence, rectal pain or melena : Reports: urinary hesitancy and nocturia; Denies: difficulty urinating or dysuria Musc: Denies: neck pain, back pain, extremity pain or extremity swelling Skin/Breast: Denies: rash Neuro: Denies: numbness in extremities or weakness in extremities Endo: Denies: polyuria or polydipsia PFS ED PFSH: Medical History Anxiety Diverticulitis Elevated PSA GERD (gastroesophageal reflux disease) Hypertension IBS (irritable bowel syndrome) Prostate cancer metastatic to bone Sleep apnea with use of continuous positive airway pressure (CPAP) Surgical History History of hemorrhoidectomy Family History Sister Cancer Mother , at age 84 Lung disease CHF (congestive heart failure) Father , at age 84 Cancer colon Other CAD (coronary artery disease) Dementia Denies family history of Diabetes Clotting disorder Hyperlipidemia Psychiatric illness Chronic kidney disease (CKD) Suicide Anesthesia complication Bleeding disorder Hypertension Stroke Social History Smoking and tobacco status: former smoker (smoked x 20 years) Quit status (tobacco): has quit using tobacco Year quit tobacco: 2004 Second hand smoke exposure: No Smoking risk assessment/counseling performed?: Yes Tobacco counseling given: counseling >3 minutes Alcohol intake: current Alcohol intake frequency: holidays/special occasions only Substance/Drug Use: never Marital status: Single Current occupational status: retired Physical Exam Narrative: EXAM NARRATIVE: The patient's alert appears to be in no acute distress makes good eye contact and answers questions in a fluent voice. Const: COMMON NORMALS: no acute distress and patient oriented x3 GENERAL APPEARANCE: cooperative and comfortable NUTRITIONAL APPEARANCE: overweight HENMT: COMMON NORMALS: normocephalic, Normal nasal mucous membranes and turbinates present, moist oral mucous membranes and oropharynx normal HEAD & SCALP: normocephalic NOSE: Normal nasal mucous membranes and turbinates present Eye: COMMON NORMALS: Equal, round and reactive pupils present, EOMs intact bilaterally and conjunctivae normal CONJUNCTIVA: Yes conjunctivae normal PUPIL: Yes Equal, round and reactive pupils present Neck/C-Spine: COMMON NORMALS: full ROM, supple and Thyroid normal GENERAL: Yes normal visual inspection THYROID: Thyroid normal Chest: COMMONS NORMALS: normal inspection of the chest Resp: COMMON NORMALS: normal respiratory effort, No retractions and clear to auscultation bilaterally EFFORT & INSPECTION: Yes able to speak in complete sentences AUSCULTATION: clear to auscultation bilaterally Cardio: COMMON NORMALS: regular rate, No murmurs present (Cardio) and Peripher al pulses 2+ throughout RATE: regular rate PERIPHERAL PULSES: Peripheral pulses 2+ throughout GI: COMMON NORMALS: Soft to palpation, non-tender and no masses INSPECTION: Yes central obesity PALPATION: Yes Soft to palpation RECTAL EXAM: Yes visual inspection normal, Yes normal sphincter tone, Yes heme negative stool, No hemorrhoids, No Rectal prolapse, No Lesions present (GI) and No Anal fissure(s) present : COMMON NORMALS: Yes no CVA tenderness BLADDER/KIDNEY EXAM: Yes no CVA tenderness Back/Pelvis: COMMON NORMALS: no CVA tenderness, thoracic and lumbar spine normal to inspection, no thoracic nor lumbar tenderness and thoraco-lumbar ROM normal Extremity: COMMON NORMALS: normal to inspection, full ROM, no calf tenderness and no pedal edema Neuro: COMMON NORMALS: patient oriented x3, moves all extremities and no sensory deficits noted CRANIAL NERVES: Yes CN normal except as noted Psych: COMMON NORMALS: mental status grossly normal Skin: COMMON NORMALS: no rashes or lesions noted, no wounds and turgor normal GENERAL SKIN EXAM: no rashes or lesions noted and turgor normal Course Reevaluation(s): Reevaluation #1: Patient remains comfortable. He is watching videos on his mobile phone. No new or concerning findings on reevaluation. I shared his work-up evaluation results and the lack of any significant pathology today. He was very happy and reassured. He is stable at this time to be discharged to outpatient follow-up with good return precautions. Time: 14:30 Vital Signs: Vital signs: Vital Signs Temperature 98.0 F 01/02/23 10:41 Pulse Rate 86 01/02/23 13:30 Respiratory Rate 18 01/02/23 12:11 Blood Pressure 136/82 01/02/23 13:30 Pulse Oximetry 96 01/02/23 13:30 Oxygen Delivery Me thod Room Air 01/02/23 12:11 [facility] - General Adult Medical Decision Making This patient presented to our emergency department because of concerns about change in his stooling over the past month is also that he might have noted some what he thinks might be fecal matter in his urine as it had some brown coloration to it. He is concerned about a possible fistula or other concerning condition. He has never had any abdominal surgeries. He states he has had prior colonoscopies as well as bouts of diverticulitis. He also has prostate cancer that is followed by oncology. Clinical examination was reassuring. Rectal exam revealed no evidence of obvious fissuring hemorrhoids masses change in sphincter tone etc. We will proceed with evaluation to include urinalysis, imaging etc. It should be noted he had reportedly a normal CT of his abdomen pelvis at [facility] by his radiation oncologist late November. Evaluation was undertaken here today to ensure there is no pathologic issues at play. His again his clinical examination was reassuring without any evidence of perirectal abscess, fistula, hemorrhoids, abnormal sphincter tone etc. Imaging was obtained which revealed no evidence of intra-abdominal pathology of acute nature such as a bowel obstruction, fistula, diverticulitis, urinary retention etc. Laboratories and urinalysis were also reassuring. Patient does not have any evidence of a serious medical condition at this time. The patient was reassured by these findings and no evidence of an ongoing emergency medical conditions present at this time but we did discuss return precautions in detail with the patient who acknowledged and voiced understanding. Medical Records I reviewed the patient's medical records. Lab Data I reviewed the patient's lab results. 01/02/23 12:48 01/02/23 12:48 Radiology Impressions Abdomen/Pelvis CT 01/02/23 12:27 IMPRESSION: 1. No acute findings. 2. Chronic and incidental findings as above. Laboratory Results WBC 9.6 10^3/uL (4.0-10.0) 01/02/23 12:48 RBC 3.86 10^6/uL (4.1-5.3) L 01/02/23 12:48 Hgb 12.7 g/dL (11.7-16.6) 01/02/23 12:48 Hct 38.5 % (42.0-52.0) L 01/02/23 12:48 MCV 99.7 fl (80-94) H 01/02/23 12:48 MCH 32.9 pg (28.0-34.0) 01/02/23 12:48 MCHC 33.0 g/dL (30.0-36.0) 01/02/23 12:48 RDW 18.3 % (12.1-15.1) H 01/02/23 12:48 Plt Count 243 10^3/cmm (130-400) 01/02/23 12:48 MPV 12.7 fL (7.4-10.4) H 01/02/23 12:48 Neut % (Auto) 79.8 % 01/02/23 12:48 Lymph % (Auto) 12.1 % 01/02/23 12:48 [place] % (Auto) 5.9 % 01/02/23 12:48 Eos % (Auto) 0.3 % 01/02/23 12:48 Baso % (Auto) 1.1 % 01/02/23 12:48 Neut # (Auto) 7.68 10^3/uL (1.8-7.7) 01/02/23 12:48 Lymph # (Auto) 1.2 10^3/uL (0.8-4.8) 01/02/23 12:48 [place] # (Auto) 0.6 10^3/uL (0.2-0.9) 01/02/23 12:48 Eos # (Auto) 0.0 10^3/uL (0.0-0.8) 01/02/23 12:48 Baso # (Auto) 0.1 10^3/uL (0.0-0.1) 01/02/23 12:48 Nucleated RBC % (auto) 0 % 01/02/23 12:48 Nucleated RBCs # 0.0 /100WBC 01/02/23 12:48 Sodium 140 mmol/L (136-145) 01/02/23 12:48 Potassium 4.5 mmol/L (3.5-5.1) 01/02/23 12:48 Chloride 103 mmol/L (98-107) 01/02/23 12:48 Carbon Dioxide 26 mmol/L (22-29) 01/02/23 12:48 Anion Gap 15.5 (5-19) 01/02/23 12:48 BUN 15 mg/dL (8-23) 01/02/23 12:48 Creatinine 0.8 mg/dL (0.7-1.2) 01/02/23 12:48 GFR Calculation Not Reportable 01/02/23 12:48 Glucose 111 mg/dL (65-115) 01/02/23 12:48 Calculated Osmolality 292 mOsm/kg (285-295) 01/02/23 12:48 Calcium 8.8 mg/dL (8.5-10.5) 01/02/23 12:48 Total Bilirubin 0.7 mg/dL (0.15-1.2) 01/02/23 12:48 AST 29 U/L (0-40) 01/02/23 12:48 ALT 28 U/L (0-41) 01/02/23 12:48 Alkaline Phosphatase 64 U/L (40-130) 01/02/23 12:48 Total Protein 6.9 g/dL (6.6-8.7) 01/02/23 12:48 Albumin 4.6 g/dL (3.5-5.2) 01/02/23 12:48 Globulin 2.3 g/dL (1.3-4.6) 01/02/23 12:48 Urine Color Yellow (Yellow) 01/02/23 12:20 Urine Appearance Clear (CLEAR) 01/02/23 12:20 Urine pH 6 (5-7) 01/02/23 12:20 Ur Specific [place] 1.010 (1.005-1.030) 01/02/23 12:20 Urine Protein Neg (Negative) 01/02/23 12:20 Urine Glucose (UA) Norm (Normal) 01/02/23 12:20 Urine Ketones Negative (Negative) 01/02/23 12:20 Urine Blood Neg (Negative) 01/02/23 12:20 Urine Nitrate Negative (Negative) 01/02/23 12:20 Urine Bilirubin Neg (Negative) 01/02/23 12:20 Urine Urobilinogen Norm mg/dL (Negative) 01/02/23 12:20 Ur Leukocyte Esterase Negative (Negative) 01/02/23 12:20 Discharge Plan Discharge Patient Disposition: Home Clinical Impression: Malignant neoplasm of prostate, Abdominal pain Condition: Stable Prescriptions: No Action diazepam 5 mg tablet 5 mg PO BID PRN (Reason: Panic Attack(S)) Prostate Health 160-100-100 mg-unit-mcg tablet 1 tab PO TID naproxen 500 mg tablet 500 mg PO BID PRN (Reason: Pain) losartan 50 mg tablet 50 mg PO BID oxycodone-acetaminophen [Percocet] 5-325 mg tablet 1 tab PO Q6H PRN (Reason: pain) 30 Days Qty: 90 0RF omeprazole 20 mg capsule,delayed release(DR/EC) 20 mg PO DAILY Qty: 30 1RF Colace 100 mg Capsule 100 mg PO BEDTIME PRN (Reason: Constipation) Miralax 17 gram/dose Powder 17 g PO BEDTIME PRN (Reason: Constipation) Discharge Orders: Discharge ED (Routine); Ordered 01/02/23 Ordered By: Marc Albarran Referrals: Kris Howe MD [Primary Care Provider] - Discharge Diet: Usual diet Discharge Activity: Increase activity as tolerated Patient Instructions: Abdominal Pain (ED), Opioid Safety, Pain Management Activity Restrictions/Additional Instructions: As we discussed your evaluation in the emergency department today did not determine that there is any serious condition causing your symptoms. There was no evidence of a bowel obstruction, bowel fistula, diverticulitis etc. We recommend you resume your MiraLAX regimen and follow-up with your oncologist later this month as scheduled. If you develop any increasing pain, fevers or any concerns return to the emergency department for reevaluation. Coding Level of Care Code ED Retail Pharmacy Manager for [facility]
[2023-01-02 12:36] LABS: Add Urine Microscopic? NO; Charge for UA Resulting for Rev
[2023-01-02 12:57] LABS: Bilirubin Urine Neg (Negative); Blood Urine Neg (Negative); Glucose Urine UA Norm (Normal); Ketones Urine Negative (Negative); Leukocyte Esterase Urine Negative (Negative); Nitrate Urine Negative (Negative); Protein Urine Neg (Negative); Urine Appearance Clear (CLEAR); Urine Color Yellow (Yellow); Urobilinogen Urine Norm (Negative); pH Urine 6 (5-7)
[2023-01-02 13:04] LABS: Basophils # 0.1 10^3/uL (0.0-0.1); Basophils % 1.1 %; Eosinophils % 0.3 %; Hematocrit 38.5 % (42.0-52.0); Hemoglobin 12.7 g/dL (11.7-16.6); Lymphocytes # 1.2 10^3/uL (0.8-4.8); Lymphocytes % 12.1 %; Mean Corpuscular Hemoglobin 32.9 pg (28.0-34.0); Mean Corpuscular Volume 99.7 fl (80-94); Mean Platelet Volume 12.7 fL (7.4-10.4); Monocytes # 0.6 10^3/uL (0.2-0.9); Monocytes % 5.9 %; Neutrophils # 7.68 10^3/uL (1.8-7.7); Neutrophils % 79.8 %; Nucleated Red Blood Cells % 0 %; Platelet Count 243 10^3/cmm (130-400); Red Blood Count 3.86 10^6/uL (4.1-5.3); Red Cell Distribution Width 18.3 % (12.1-15.1); White Blood Count 9.6 10^3/uL (4.0-10.0)
[2023-01-02 13:17] LABS: Alanine Aminotransferase 28 U/L (0-41); Albumin Level 4.6 g/dL (3.5-5.2); Alkaline Phosphatase 64 U/L (40-130); Anion Gap 15.5 (5-19); Aspartate Amino Transferase 29 U/L (0-40); Blood Urea Nitrogen 15 mg/dL (8-23); Calcium 8.8 mg/dL (8.5-10.5); Carbon Dioxide 26 mmol/L (22-29); Chloride 103 mmol/L (98-107); Globulin 2.3 g/dL (1.3-4.6); Glucose 111 mg/dL (65-115); Osmolality Calculated 292 mOsm/kg (285-295); Potassium 4.5 mmol/L (3.5-5.1); Sodium 140 mmol/L (136-145); Total Bilirubin 0.7 mg/dL (0.15-1.2); Total Protein 6.9 g/dL (6.6-8.7)
[2023-01-02 13:30] VITALS: BP 136/82; PULSE 86; O2SAT 96
[2023-01-02] MEDS: iohexol 350 mg/mL 500 mL Btl (per mL) IV (13:41)
== END 2023-01-02 14:42 | disposition home or self-care (01) ==
PROVIDERS: Emergency Provider Emergency Medicine; PCP Family Medicine
DX: R10.9 Unspecified abdominal pain (principal); C61 Malignant neoplasm of prostate; Z87.891 Personal history of nicotine dependence; I10 Essential (primary) hypertension; Z85.830 Personal history of malignant neoplasm of bone
CPT/HCPCS: 74177; 80053; 81003; 85025; 99285; Q9967

== ENCOUNTER 2023-01-11 10:26 | Oncology outpatient (recurring) (ONCR) | payer MEDICARE, MEDICAID, SELFPAY ==
[2022-12-28] MEDS: denosumab 120 mg SDV SUBCUT (15:58)
[2022-12-28 16:13] VITALS: BP 151/89; PULSE 79; RESP 18; TEMP 35.9; O2SAT 97
== END 2023-01-12 23:59 | disposition home or self-care (01) ==
PROVIDERS: PCP Family Medicine; Visit Provider Internal Medicine Medical Oncology
DX: C61 Malignant neoplasm of prostate (principal); C79.51 Secondary malignant neoplasm of bone; M54.6 Pain in thoracic spine; G89.3 Neoplasm related pain (acute) (chronic); R97.21 Rising PSA following treatment for malignant neoplasm of prostate; Z79.818 Long term (current) use of other agents affecting estrogen receptors and estrogen levels; Z79.899 Other long term (current) drug therapy
CPT/HCPCS: 96372; 99214; J0897

== ENCOUNTER 2023-02-01 14:31 | Oncology outpatient (recurring) (ONCR) | payer MEDICARE, MEDICAID, SELFPAY ==
[2023-01-25 13:42] VITALS: BP 143/84; PULSE 93; RESP 16; TEMP 35.9; O2SAT 96
[2023-01-25 14:24] LABS: Basophils # 0.1 10^3/uL (0.0-0.1); Eosinophils # 0.1 10^3/uL (0.0-0.8); Eosinophils % 1.6 %; Hematocrit 37.2 % (37-53); Lymphocytes # 1.6 10^3/uL (0.8-4.8); Lymphocytes % 22.5 %; Mean Corpuscular HGB Conc 33.6 g/dL (30-55); Mean Corpuscular Hemoglobin 33.2 pg (27-33); Mean Corpuscular Volume 98.9 fl (82-101); Mean Platelet Volume 13.2 fL (7.4-10.4); Monocytes # 0.4 10^3/uL (0.2-0.9); Monocytes % 5.9 %; Neutrophils # 4.84 10^3/uL (1.8-7.7); Neutrophils % 68.3 %; Nucleated Red Blood Cells % 0.3 %; Platelet Count 243 10^3/cmm (157-399); Red Blood Count 3.76 10^6/uL (3.85-5.65); Red Cell Distribution Width 18.8 % (12.1-15.1); White Blood Count 7.08 10^3/uL (3.29-11.43)
[2023-01-25 14:35] LABS: Alanine Aminotransferase 24 U/L (0-41); Albumin Level 4.3 g/dL (3.5-5.2); Alkaline Phosphatase 69 U/L (40-130); Aspartate Amino Transferase 30 U/L (0-40); Blood Urea Nitrogen 14 mg/dL (8-23); Calcium 8.5 mg/dL (8.5-10.5); Carbon Dioxide 24 mmol/L (22-29); Chloride 106 mmol/L (98-107); Globulin 2.6 g/dL (1.3-4.6); Glucose 116 mg/dL (65-115); Osmolality Calculated 289 mOsm/kg (285-295); Sodium 139 mmol/L (136-145); Total Bilirubin 0.6 mg/dL (0.15-1.2); Total Protein 6.9 g/dL (6.6-8.7)
[2023-01-25 14:38] LABS: Anion Gap 13.4 (5-19); Potassium 4.4 mmol/L (3.5-5.1)
[2023-02-01 15:00] VITALS: BP 132/77; PULSE 90; RESP 20; TEMP 36.1; O2SAT 92
[2023-02-01] MEDS: lidocaine 1% INJ 20 mL MDV (mL) SUBCUT (15:14)
[2023-02-01] MEDS: denosumab 120 mg SDV SUBCUT (15:30)
[2023-02-01] MEDS: goserelin acetate 10.8 mg Implant SUBCUT (15:38)
== END 2023-02-11 23:59 | disposition home or self-care (01) ==
PROVIDERS: PCP Family Medicine; Visit Provider Internal Medicine Medical Oncology
DX: C61 Malignant neoplasm of prostate (principal)
CPT/HCPCS: 36415; 80053; 84153; 85025; 96372; 96401; 99213; J0897; J9202

== ENCOUNTER 2023-03-01 12:10 | Oncology outpatient (recurring) (ONCR) | payer MEDICARE, MEDICAID, SELFPAY ==
[2023-03-01 12:28] VITALS: BP 123/70; PULSE 81; RESP 16; TEMP 36.7; O2SAT 94
[2023-03-01 13:19] LABS: Basophils # 0.1 10^3/uL (0.0-0.1); Basophils % 1.1 %; Eosinophils # 0.3 10^3/uL (0.0-0.8); Eosinophils % 3.9 %; Hematocrit 38.6 % (37-53); Lymphocytes # 2.1 10^3/uL (0.8-4.8); Lymphocytes % 29.4 %; Mean Corpuscular HGB Conc 33.4 g/dL (30-55); Mean Corpuscular Hemoglobin 33.3 pg (27-33); Mean Corpuscular Volume 99.7 fl (82-101); Monocytes # 0.5 10^3/uL (0.2-0.9); Monocytes % 6.2 %; Neutrophils # 4.21 10^3/uL (1.8-7.7); Neutrophils % 58.3 %; Nucleated Red Blood Cells % 0.4 %; Platelet Count 258 10^3/cmm (157-399); Red Blood Count 3.87 10^6/uL (3.85-5.65); Red Cell Distribution Width 19.9 % (12.1-15.1); White Blood Count 7.22 10^3/uL (3.29-11.43)
[2023-03-01 13:49] LABS: Alanine Aminotransferase 20 U/L (0-41); Albumin Level 4.2 g/dL (3.5-5.2); Alkaline Phosphatase 110 U/L (40-130); Aspartate Amino Transferase 25 U/L (0-40); Blood Urea Nitrogen 15 mg/dL (8-23); Carbon Dioxide 24 mmol/L (22-29); Chloride 106 mmol/L (98-107); Globulin 2.8 g/dL (1.3-4.6); Glucose 110 mg/dL (65-115); Osmolality Calculated 293 mOsm/kg (285-295); Sodium 141 mmol/L (136-145); Testosterone Total 2.5 ng/dL (193-740); Total Bilirubin 0.6 mg/dL (0.15-1.2)
[2023-03-01 13:50] LABS: Anion Gap 15.2 (5-19); Potassium 4.2 mmol/L (3.5-5.1)
[2023-03-01 13:54] LABS: Slide Review Slide Review Perform
[2023-03-01] MEDS: denosumab 120 mg SDV SUBCUT (14:44)
== END 2023-03-14 23:59 | disposition home or self-care (01) ==
LOC: ONCMED 12:11
PROVIDERS: Nurse Practitioner Family; PCP Family Medicine; Visit Provider Internal Medicine Medical Oncology
DX: C61 Malignant neoplasm of prostate (principal); C79.51 Secondary malignant neoplasm of bone; G89.3 Neoplasm related pain (acute) (chronic)
CPT/HCPCS: 36415; 80053; 84153; 84403; 85025; 99214; J0897

== ENCOUNTER 2023-03-29 14:12 | Oncology outpatient (recurring) (ONCR) | payer MEDICARE, MEDICAID, SELFPAY ==
[2023-03-29 14:50] VITALS: BP 114/78; BP 139/78; PULSE 80; PULSE 84; RESP 18; TEMP 36.5; TEMP 36.6; O2SAT 96; O2SAT 98
[2023-03-29 15:56] LABS: Basophils # 0.1 10^3/uL (0.0-0.1); Basophils % 1.6 %; Eosinophils # 0.1 10^3/uL (0.0-0.8); Eosinophils % 1.8 %; Hematocrit 36.2 % (37-53); Lymphocytes # 1.4 10^3/uL (0.8-4.8); Lymphocytes % 28.9 %; Mean Corpuscular HGB Conc 33.7 g/dL (30-55); Mean Corpuscular Hemoglobin 33.3 pg (27-33); Mean Corpuscular Volume 98.9 fl (82-101); Monocytes # 0.4 10^3/uL (0.2-0.9); Monocytes % 7.1 %; Neutrophils # 2.93 10^3/uL (1.8-7.7); Neutrophils % 59.6 %; Nucleated Red Blood Cells % 0 %; Platelet Count 217 10^3/cmm (157-399); Red Blood Count 3.66 10^6/uL (3.85-5.65); Red Cell Distribution Width 19.7 % (12.1-15.1); White Blood Count 4.92 10^3/uL (3.29-11.43)
[2023-03-29 16:20] LABS: Alanine Aminotransferase 18 U/L (0-41); Albumin Level 4.3 g/dL (3.5-5.2); Alkaline Phosphatase 169 U/L (40-130); Aspartate Amino Transferase 27 U/L (0-40); Blood Urea Nitrogen 13 mg/dL (8-23); Calcium 8.9 mg/dL (8.5-10.5); Carbon Dioxide 24 mmol/L (22-29); Chloride 103 mmol/L (98-107); Globulin 2.9 g/dL (1.3-4.6); Glucose 121 mg/dL (65-115); Osmolality Calculated 287 mOsm/kg (285-295); Sodium 138 mmol/L (136-145); Total Bilirubin 0.7 mg/dL (0.15-1.2); Total Protein 7.2 g/dL (6.6-8.7)
[2023-03-29 16:33] LABS: Anion Gap 15.6 (5-19); Potassium 4.6 mmol/L (3.5-5.1)
[2023-03-29] MEDS: denosumab 120 mg SDV SUBCUT (16:43)
[2023-03-29 16:45] LABS: Slide Review Slide Review Perform
== END 2023-04-13 23:59 | disposition home or self-care (01) ==
PROVIDERS: Nurse Practitioner Family; PCP Family Medicine; Visit Provider Internal Medicine Medical Oncology
DX: C61 Malignant neoplasm of prostate (principal); C79.51 Secondary malignant neoplasm of bone; G89.3 Neoplasm related pain (acute) (chronic); Z79.899 Other long term (current) drug therapy
CPT/HCPCS: 36415; 80053; 84153; 85025; 99214; J0897

== ENCOUNTER 2023-04-27 12:31 | Oncology outpatient (recurring) (ONCR) | payer MEDICARE, MEDICAID, SELFPAY ==
[2023-04-27 13:10] VITALS: BP 139/72; PULSE 101; RESP 16; TEMP 36.4; O2SAT 95
[2023-04-27 13:14] LABS: Basophils # 0.1 10^3/uL (0.0-0.1); Basophils % 1.3 %; Eosinophils # 0.1 10^3/uL (0.0-0.8); Eosinophils % 1.7 %; Hematocrit 32.7 % (37-53); Lymphocytes # 1.4 10^3/uL (0.8-4.8); Lymphocytes % 22.2 %; Mean Corpuscular HGB Conc 33.9 g/dL (30-55); Mean Corpuscular Hemoglobin 33.3 pg (27-33); Mean Corpuscular Volume 98.2 fl (82-101); Mean Platelet Volume 10.9 fL (7.4-10.4); Monocytes # 0.4 10^3/uL (0.2-0.9); Monocytes % 6.6 %; Neutrophils # 4.08 10^3/uL (1.8-7.7); Neutrophils % 64.4 %; Nucleated Red Blood Cells # 0.1 /100WBC; Nucleated Red Blood Cells % 1.1 %; Platelet Count 176 10^3/cmm (157-399); Red Blood Count 3.33 10^6/uL (3.85-5.65); Red Cell Distribution Width 20.2 % (12.1-15.1); White Blood Count 6.34 10^3/uL (3.29-11.43)
[2023-04-27 13:31] LABS: Alanine Aminotransferase 12 U/L (0-41); Albumin Level 4.1 g/dL (3.5-5.2); Alkaline Phosphatase 234 U/L (40-130); Anion Gap 16.5 (5-19); Aspartate Amino Transferase 30 U/L (0-40); Blood Urea Nitrogen 7 mg/dL (8-23); Calcium 8.4 mg/dL (8.5-10.5); Carbon Dioxide 21 mmol/L (22-29); Chloride 106 mmol/L (98-107); Globulin 2.8 g/dL (1.3-4.6); Glucose 136 mg/dL (65-115); Osmolality Calculated 288 mOsm/kg (285-295); Potassium 4.5 mmol/L (3.5-5.1); Sodium 139 mmol/L (136-145); Total Bilirubin 0.5 mg/dL (0.15-1.2); Total Protein 6.9 g/dL (6.6-8.7)
[2023-04-27] MEDS: lidocaine 1% INJ 20 mL MDV (mL) SUBCUT (15:20)
[2023-04-27] MEDS: denosumab 120 mg SDV SUBCUT (15:35)
[2023-04-27] MEDS: goserelin acetate 10.8 mg Implant SUBCUT (15:40)
[2023-04-27 15:43] VITALS: BP 133/77; PULSE 75; RESP 17; O2SAT 98
[2023-04-27 15:59] LABS: Lactate Dehydrogenase 774 U/L (135-225); Testosterone Total 2.5 ng/dL (193-740)
[2023-04-27 16:09] LABS: Folate Level 13.3 ng/mL (4.5-32.2)
[2023-04-27 16:13] LABS: Ferritin 911 ng/mL (30-400); Iron 64 ug/dL (59-158); Percent Saturation 23.3 % (20-50); Total Iron Binding Capacity 274 mcg/dl; Unsaturated Iron Binding 210 ug/dL (112-347)
[2023-04-27 16:29] LABS: Vitamin B12 1027 pg/mL (232-1245)
[2023-04-30 20:39] LABS: Methylmalonic Acid 178 nmol/L (87-318)
== END 2023-05-14 23:59 | disposition home or self-care (01) ==
PROVIDERS: Internal Medicine; PCP Family Medicine; Visit Provider Internal Medicine Medical Oncology
DX: C61 Malignant neoplasm of prostate (principal); C79.51 Secondary malignant neoplasm of bone; G89.3 Neoplasm related pain (acute) (chronic); Z79.899 Other long term (current) drug therapy; Z51.11 Encounter for antineoplastic chemotherapy
CPT/HCPCS: 36415; 80053; 82607; 82728; 82746; 83540; 83550; 83615; 83921; 84153; 84238; 84403; 85025; 96401; 96402; 99215; J0897; J9202